=== PATIENT | female | born 1975 | race Caucasian/White ===

== ENCOUNTER → 2016-04-14 | Outpatient (REF) | payer MEDICARE, MEDICAID ==
[2016-04-14 12:17] LABS: ALBUMIN 3.8 GM/DL (3.2-5.2); ALBUMIN/GLOBULIN RATIO 1.27 (1.00-1.93); ALKALINE PHOSPHATASE 69 U/L (45-117); ALT/SGPT 30 U/L (12-78); ANION GAP 9 MEQ/L (8-16); AST/SGOT 19 U/L (15-37); BILIRUBIN,TOTAL 0.5 MG/DL (0.2-1.0); BLOOD UREA NITROGEN 12 MG/DL (7-18); CALCIUM LEVEL 9.1 MG/DL (8.5-10.1); CARBON DIOXIDE LEVEL 29 MEQ/L (21-32); CHLORIDE LEVEL 103 MEQ/L (98-107); CHOLESTEROL LEVEL 162 MG/DL (<200); CREATININE FOR GFR 0.85 MG/DL (0.55-1.02); GLOMERULAR FILTRATION RATE > 60.0 (>58); GLUCOSE, FASTING 340 MG/DL (70-105); POTASSIUM SERUM 4.2 MEQ/L (3.5-5.1); SODIUM LEVEL 141 MEQ/L (136-145); TOTAL PROTEIN 6.8 GM/DL (6.4-8.2); TRIGLYCERIDES LEVEL 317 MG/DL (<150)
== END ==
LOC: M SFHCCLAY 09:18
PROVIDERS: ATTEND Nurse Practitioner
DX: E11.8 Type 2 diabetes mellitus with unspecified complications (principal)

== ENCOUNTER → 2016-06-11 | Outpatient (REF) | payer MEDICARE, MEDICAID ==
[2016-06-11 11:42] LABS: ALBUMIN 3.4 GM/DL (3.2-5.2); ALBUMIN/GLOBULIN RATIO 1.17 (1.00-1.93); ALKALINE PHOSPHATASE 59 U/L (45-117); ALT/SGPT 22 U/L (12-78); ANION GAP 10 MEQ/L (8-16); AST/SGOT 12 U/L (15-37); BILIRUBIN,TOTAL 0.4 MG/DL (0.2-1.0); BLOOD UREA NITROGEN 12 MG/DL (7-18); CALCIUM LEVEL 8.9 MG/DL (8.5-10.1); CARBON DIOXIDE LEVEL 28 MEQ/L (21-32); CHLORIDE LEVEL 107 MEQ/L (98-107); CHOLESTEROL LEVEL 136 MG/DL (<200); CREATININE FOR GFR 0.84 MG/DL (0.55-1.02); GLOMERULAR FILTRATION RATE > 60.0 (>58); GLUCOSE, FASTING 241 MG/DL (70-105); POTASSIUM SERUM 3.8 MEQ/L (3.5-5.1); SODIUM LEVEL 145 MEQ/L (136-145); TOTAL PROTEIN 6.3 GM/DL (6.4-8.2); TRIGLYCERIDES LEVEL 253 MG/DL (<150)
== END ==
LOC: M SFHCCLAY 06:58
PROVIDERS: ATTEND Nurse Practitioner
DX: E11.8 Type 2 diabetes mellitus with unspecified complications (principal)
CPT/HCPCS: 80053; 80061; 82948; 83036; G0463

== ENCOUNTER → 2016-09-10 | Outpatient (REF) | payer MEDICARE, MEDICAID ==
[2016-09-10 12:49] LABS: ALBUMIN 3.6 GM/DL (3.2-5.2); ALBUMIN/GLOBULIN RATIO 1.24 (1.00-1.93); ALKALINE PHOSPHATASE 62 U/L (45-117); ALT/SGPT 25 U/L (12-78); ANION GAP 8 MEQ/L (8-16); AST/SGOT 9 U/L (15-37); BILIRUBIN,TOTAL 0.4 MG/DL (0.2-1.0); BLOOD UREA NITROGEN 13 MG/DL (7-18); CALCIUM LEVEL 8.9 MG/DL (8.5-10.1); CARBON DIOXIDE LEVEL 27 MEQ/L (21-32); CHLORIDE LEVEL 108 MEQ/L (98-107); CHOLESTEROL LEVEL 143 MG/DL (<200); CREATININE FOR GFR 0.83 MG/DL (0.55-1.02); GLOMERULAR FILTRATION RATE > 60.0 (>58); GLUCOSE, FASTING 163 MG/DL (70-105); MAGNESIUM LEVEL 1.8 MG/DL (1.8-2.4); SODIUM LEVEL 143 MEQ/L (136-145); TOTAL PROTEIN 6.5 GM/DL (6.4-8.2); TRIGLYCERIDES LEVEL 153 MG/DL (<150)
== END ==
LOC: M SFHCCLAY 08:13
PROVIDERS: ATTEND Nurse Practitioner
DX: E11.8 Type 2 diabetes mellitus with unspecified complications (principal); L29.9 Pruritus, unspecified

== ENCOUNTER → 2016-12-11 | Outpatient (REF) | payer MEDICARE, MEDICAID ==
[2016-12-11 12:26] LABS: ANION GAP 10 MEQ/L (8-16); BLOOD UREA NITROGEN 9 MG/DL (7-18); CALCIUM LEVEL 9.4 MG/DL (8.5-10.1); CARBON DIOXIDE LEVEL 27 MEQ/L (21-32); CHLORIDE LEVEL 108 MEQ/L (98-107); CREATININE FOR GFR 0.83 MG/DL (0.55-1.02); GLOMERULAR FILTRATION RATE > 60.0 (>58); GLUCOSE, FASTING 132 MG/DL (70-105); POTASSIUM SERUM 3.9 MEQ/L (3.5-5.1); SODIUM LEVEL 145 MEQ/L (136-145)
[2016-12-11 12:27] LABS: ALBUMIN 3.7 GM/DL (3.2-5.2); ALBUMIN/GLOBULIN RATIO 1.19 (1.00-1.93); ALKALINE PHOSPHATASE 52 U/L (45-117); ALT/SGPT 31 U/L (12-78); AST/SGOT 9 U/L (15-37); BILIRUBIN,TOTAL 0.4 MG/DL (0.2-1.0); CHOLESTEROL LEVEL 134 MG/DL (<200); TOTAL PROTEIN 6.8 GM/DL (6.4-8.2); TRIGLYCERIDES LEVEL 181 MG/DL (<150)
== END ==
LOC: M SFHCCLAY 08:25
PROVIDERS: ATTEND Nurse Practitioner
DX: E11.8 Type 2 diabetes mellitus with unspecified complications (principal); E55.9 Vitamin D deficiency, unspecified

== ENCOUNTER → 2017-03-03 | Outpatient (REF) | payer MEDICARE, MEDICAID ==
[2017-03-03 12:59] LABS: ALBUMIN 3.5 GM/DL (3.2-5.2); ALBUMIN/GLOBULIN RATIO 1.13 (1.00-1.93); ALKALINE PHOSPHATASE 60 U/L (45-117); ALT/SGPT 25 U/L (12-78); ANION GAP 5 MEQ/L (8-16); AST/SGOT 9 U/L (7-37); BILIRUBIN,TOTAL 0.4 MG/DL (0.2-1.0); BLOOD UREA NITROGEN 10 MG/DL (7-18); CARBON DIOXIDE LEVEL 32 MEQ/L (21-32); CHLORIDE LEVEL 105 MEQ/L (98-107); CHOLESTEROL LEVEL 153 MG/DL (<200); CREATININE FOR GFR 0.84 MG/DL (0.55-1.02); GLOMERULAR FILTRATION RATE > 60.0 (>58); GLUCOSE, FASTING 218 MG/DL (70-105); POTASSIUM SERUM 4.2 MEQ/L (3.5-5.1); SODIUM LEVEL 142 MEQ/L (136-145); TOTAL PROTEIN 6.6 GM/DL (6.4-8.2); TRIGLYCERIDES LEVEL 173 MG/DL (<150)
== END ==
LOC: M SFHCLERA 07:46 → M LABDRAWC 08:08
PROVIDERS: ATTEND Family Medicine
DX: E11.8 Type 2 diabetes mellitus with unspecified complications (principal)

== ENCOUNTER → 2017-05-19 | Outpatient (REF) | payer MEDICARE, MEDICAID ==
[2017-05-20 12:43] LABS: ESTIMATED AVERAGE GLUCOSE 232 MG/DL (60-110); HEMOGLOBIN A1c 9.7 %
== END ==
LOC: M SFHCCLAY 14:14
DX: E11.8 Type 2 diabetes mellitus with unspecified complications (principal)
CPT/HCPCS: 83036

== ENCOUNTER → 2017-09-03 | Outpatient (REF) | payer MEDICARE, MEDICAID ==
[2017-09-03 17:11] LABS: ANION GAP 6 MEQ/L (8-16); BLOOD UREA NITROGEN 15 MG/DL (7-18); CARBON DIOXIDE LEVEL 27 MEQ/L (21-32); CHLORIDE LEVEL 108 MEQ/L (98-107); CREATININE FOR GFR 1.03 MG/DL (0.55-1.30); GLOMERULAR FILTRATION RATE > 60.0 (>58); GLUCOSE, FASTING 211 MG/DL (70-100); POTASSIUM SERUM 4.1 MEQ/L (3.5-5.1); SODIUM LEVEL 141 MEQ/L (136-145)
[2017-09-03 17:39] LABS: ESTIMATED AVERAGE GLUCOSE 206 MG/DL (60-110); HEMOGLOBIN A1c 8.8 %
== END ==
LOC: M SFHCCLAY 11:00
DX: E11.9 Type 2 diabetes mellitus without complications (principal)
CPT/HCPCS: 83036

== ENCOUNTER → 2017-12-21 | Outpatient (REF) | payer MEDICARE, MEDICAID ==
[2017-12-21 11:56] LABS: BASO # 0.1 10^3/uL (0.0-0.2); BASO % 0.8 % (0.0-1.0); EOS # 0.7 10^3/uL (0.0-0.50); EOS % 7.2 % (0.0-3.0); HEMATOCRIT 43.3 % (36.0-47.0); HEMOGLOBIN 14.2 g/dl (12.0-15.5); IMMATURE GRANULOCYTE % 0.2 % (0-3.0); LYMPH # 2.9 10^3/uL (1.5-4.5); MEAN CORPUSCULAR HEMOGLOBIN 28.4 pg (27.0-33.0); MEAN CORPUSCULAR HGB CONC 32.8 g/dl (32.0-36.5); MEAN CORPUSCULAR VOLUME 86.6 fl (80.0-96.0); MONO # 0.6 10^3/uL (0.0-0.8); MONO % 6.1 % (0.0-5.0); NEUTROPHILS # 5.4 10^3/uL (1.8-7.7); NEUTROPHILS % 55.7 % (36.0-66.0); PLATELET COUNT, AUTOMATED 246 10^3/uL (150-450); RED CELL DISTRIBUTION WIDTH 13.2 % (11.5-14.5); WHITE BLOOD COUNT 9.6 10^3/uL (4.0-10.0)
[2017-12-21 12:32] LABS: ALKALINE PHOSPHATASE 69 U/L (45-117); ALT/SGPT 84 U/L (12-78); ANION GAP 7 MEQ/L (8-16); AST/SGOT 41 U/L (7-37); BILIRUBIN,TOTAL 0.5 MG/DL (0.2-1.0); BLOOD UREA NITROGEN 6 MG/DL (7-18); CALCIUM LEVEL 9.7 MG/DL (8.5-10.1); CARBON DIOXIDE LEVEL 28 MEQ/L (21-32); CHLORIDE LEVEL 109 MEQ/L (98-107); CREATININE FOR GFR 0.77 MG/DL (0.55-1.30); FERRITIN 553 NG/ML (8-252); GLOMERULAR FILTRATION RATE > 60.0 (>58); GLUCOSE, FASTING 202 MG/DL (70-100); IRON (FE) 76 UG/DL (50-170); MAGNESIUM LEVEL 1.9 MG/DL (1.8-2.4); PHOSPHORUS LEVEL 3.3 MG/DL (2.5-4.9); POTASSIUM SERUM 3.9 MEQ/L (3.5-5.1); SODIUM LEVEL 144 MEQ/L (136-145); TOTAL 25(OH) VITAMIN D 35.1 NG/ML (30.0-100.0); TOTAL IRON BINDING CAPACITY 226 UG/DL (250-450); TOTAL PROTEIN 6.9 GM/DL (6.4-8.2)
[2017-12-21 12:41] LABS: HEMATOCRIT 42.9 % (36.0-47.0)
[2017-12-21 13:03] LABS: ESTIMATED AVERAGE GLUCOSE 169 MG/DL (60-110); HEMOGLOBIN A1c 7.5 %
[2017-12-21 16:16] LABS: ALBUMIN/GLOBULIN RATIO 1.38 (1.00-1.93); PERCENT SATURATION 33.6 % (13.2-45.0)
[2017-12-21 16:20] LABS: RBC FOLATE 685.3 NG/ML (280-791)
[2017-12-24 08:06] LABS: VITAMIN B1 LEVEL WHOLE BLOOD 149.4 nmol/L (66.5-200.0)
== END ==
LOC: M LABDRAWC 11:16
DX: K91.2 Postsurgical malabsorption, not elsewhere classified (principal); E55.9 Vitamin D deficiency, unspecified; Z98.84 Bariatric surgery status
CPT/HCPCS: 83550

== ENCOUNTER → 2018-02-16 | Outpatient (REF) | payer MEDICARE, MEDICAID ==
[2018-02-16 11:41] LABS: HEMATOCRIT 44.6 % (36.0-47.0); HEMOGLOBIN 14.3 g/dl (12.0-15.5); MEAN CORPUSCULAR HGB CONC 32.1 g/dl (32.0-36.5); MEAN CORPUSCULAR VOLUME 87.3 fl (80.0-96.0); PLATELET COUNT, AUTOMATED 249 10^3/uL (150-450); RED BLOOD COUNT 5.11 10^6/uL (4.00-5.40)
[2018-02-16 11:47] LABS: ALBUMIN 3.7 GM/DL (3.2-5.2); ALBUMIN/GLOBULIN RATIO 1.28 (1.00-1.93); ALKALINE PHOSPHATASE 66 U/L (45-117); ALT/SGPT 26 U/L (12-78); ANION GAP 7 MEQ/L (8-16); AST/SGOT 11 U/L (7-37); BILIRUBIN,TOTAL 0.5 MG/DL (0.2-1.0); BLOOD UREA NITROGEN 8 MG/DL (7-18); CALCIUM LEVEL 9.3 MG/DL (8.5-10.1); CARBON DIOXIDE LEVEL 29 MEQ/L (21-32); CHLORIDE LEVEL 106 MEQ/L (98-107); CHOLESTEROL LEVEL 202 MG/DL (<200); CHOLESTEROL RISK RATIO 6.312 (<5); CREATININE FOR GFR 0.69 MG/DL (0.55-1.30); GLOMERULAR FILTRATION RATE > 60.0 (>58); GLUCOSE, FASTING 155 MG/DL (70-100); HDL CHOLESTEROL 32 MG/DL (>40); LDL CHOLESTEROL 121 MG/DL (<100); NON-HDL-C 170 MG/DL; SODIUM LEVEL 142 MEQ/L (136-145); TOTAL PROTEIN 6.6 GM/DL (6.4-8.2); TRIGLYCERIDES LEVEL 245 MG/DL (<150)
[2018-02-16 11:54] LABS: ESTIMATED AVERAGE GLUCOSE 169 MG/DL (60-110); HEMOGLOBIN A1c 7.5 %; PTH INTACT 45.4 PG/ML (18.5-88.0)
== END ==
LOC: M SFHCCLAY 07:30
DX: Z98.84 Bariatric surgery status (principal); E11.8 Type 2 diabetes mellitus with unspecified complications
CPT/HCPCS: 80053

== ENCOUNTER → 2018-05-23 | Outpatient (REF) | payer MEDICARE, MEDICAID ==
[2018-05-23 12:13] LABS: BASO # 0.1 10^3/uL (0.0-0.2); BASO % 0.6 % (0.0-1.0); EOS # 0.3 10^3/uL (0.0-0.50); EOS % 2.4 % (0.0-3.0); HEMATOCRIT 45.3 % (36.0-47.0); HEMOGLOBIN 14.7 g/dl (12.0-15.5); LYMPH # 3.9 10^3/uL (1.5-4.5); LYMPH % 31.8 % (24.0-44.0); MEAN CORPUSCULAR HEMOGLOBIN 28.8 pg (27.0-33.0); MEAN CORPUSCULAR HGB CONC 32.5 g/dl (32.0-36.5); MEAN CORPUSCULAR VOLUME 88.8 fl (80.0-96.0); MONO # 0.7 10^3/uL (0.0-0.8); MONO % 5.6 % (0.0-5.0); NEUTROPHILS # 7.3 10^3/uL (1.8-7.7); NEUTROPHILS % 59.3 % (36.0-66.0); PLATELET COUNT, AUTOMATED 265 10^3/uL (150-450); WHITE BLOOD COUNT 12.3 10^3/uL (4.0-10.0)
[2018-05-23 12:21] LABS: HEMATOCRIT 45.3 % (36.0-47.0)
[2018-05-23 12:46] LABS: ALBUMIN 3.7 GM/DL (3.2-5.2); ALT/SGPT 23 U/L (12-78); BILIRUBIN,TOTAL 0.5 MG/DL (0.2-1.0); BLOOD UREA NITROGEN 7 MG/DL (7-18); CALCIUM LEVEL 8.8 MG/DL (8.5-10.1); CARBON DIOXIDE LEVEL 32 MEQ/L (21-32); CHLORIDE LEVEL 104 MEQ/L (98-107); CREATININE FOR GFR 0.69 MG/DL (0.55-1.30); FERRITIN 320 NG/ML (8-252); GLOMERULAR FILTRATION RATE > 60.0 (>58); GLUCOSE, FASTING 165 MG/DL (70-100); IRON (FE) 83 UG/DL (50-170); MAGNESIUM LEVEL 1.8 MG/DL (1.8-2.4); PERCENT SATURATION 31.6 % (13.2-45.0); PHOSPHORUS LEVEL 4.2 MG/DL (2.5-4.9); POTASSIUM SERUM 4.4 MEQ/L (3.5-5.1); SODIUM LEVEL 141 MEQ/L (136-145); TOTAL IRON BINDING CAPACITY 263 UG/DL (250-450); TOTAL PROTEIN 6.7 GM/DL (6.4-8.2)
[2018-05-23 12:49] LABS: TOTAL 25(OH) VITAMIN D 25.2 NG/ML (30.0-100.0)
[2018-05-24 11:02] LABS: VITAMIN B12 LEVEL 753 PG/ML (232-1245)
== END ==
LOC: M LABDRAWC 11:25
PROVIDERS: ATTEND Surgery
DX: K91.2 Postsurgical malabsorption, not elsewhere classified (principal); Z98.84 Bariatric surgery status; E55.9 Vitamin D deficiency, unspecified; E11.8 Type 2 diabetes mellitus with unspecified complications

== ENCOUNTER → 2018-05-23 | Outpatient (REF) | payer MEDICARE, MEDICAID | LOC: M SFHCCLAY 08:53 | PROVIDERS: ATTEND Family Medicine | DX: E11.8 Type 2 diabetes mellitus with unspecified complications (principal) ==

== ENCOUNTER → 2018-09-07 | Outpatient (CLI) | payer MEDICARE, MEDICAID ==
--- NOTE | 2018-09-07 11:09 | REP ---
Bilateral rib series: Eight views including PA chest. History: Rib pain on the right side after a strain injury. Findings: The PA chest radiograph is normal. There is no evidence of infiltrate, pneumothorax, or hydrothorax. Mediastinum is not widened. Heart size is normal. Multiple views of the right and left rib cage are presented. These show no evidence of rib fracture or bony destructive lesion. There is periarticular soft-tissue calcification noted about the right shoulder consistent with calcific tendonitis or bursitis. There are clips in the right upper quadrant of the abdomen. Impression: Negative bilateral rib radiographs.
--- NOTE | 2018-09-07 11:11 | REP ---
Thoracic spine series: Three views. History: Mid back pain. Findings: Three views of the thoracic spine demonstrate preserved vertebral body heights and normal alignment. There is moderate discogenic spurring anteriorly throughout the mid and lower thoracic levels. Pedicles and posterior elements are intact. No paravertebral soft-tissue mass or hematoma is seen. No bony destructive lesion is appreciated. Impression: Degenerative disc changes. No acute bony abnormality.
--- NOTE | 2018-09-07 11:44 | REP ---
LUMBAR SPINE SERIES: Five views. HISTORY: Acute midline low back pain without sciatica. COMPARISON RADIOGRAPHS: December 20, 2013. FINDINGS: There are clips in the right upper quadrant and sutures in the left upper quadrant. Psoas margins are intact. Bowel gas pattern is normal. Lumbar vertebral body heights are preserved. Alignment is normal. There are advanced degenerative disc changes at L5-S1 with reactive sclerosis, disc space narrowing, spur formation, and a vacuum phenomenon in the disc. Alignment at L5-S1 is unchanged. There is degenerative disc disease at L4-5 and L3-4 as well. Degenerative disc findings at these levels are unchanged from December 20, 2013. There is osteoarthritic facet hypertrophy bilaterally L4-5 and L5-S1 mild in degree. Sacrum and SI joints are intact. IMPRESSION: Degenerative spondylosis changes with moderate to advanced degenerative disc disease L5-S1. Findings unchanged radiographically from December 20, 2013. Electronically Signed by Jamar Gordon MD 09/07/2018 12:37 P
== END ==
LOC: M CLY 09:42
PROVIDERS: ATTEND Family Medicine
DX: M51.34 Other intervertebral disc degeneration, thoracic region (principal); M51.37 Other intervertebral disc degeneration, lumbosacral region; E11.8 Type 2 diabetes mellitus with unspecified complications; R07.81 Pleurodynia; M54.5 Low back pain
CPT/HCPCS: 71111; 72072; 72110; 80053; 83036; G0463

== ENCOUNTER → 2018-09-07 | Outpatient (REF) | payer MEDICARE, MEDICAID ==
[2018-09-07 17:34] LABS: ALBUMIN 3.8 GM/DL (3.2-5.2); ALT/SGPT 15 U/L (12-78); BILIRUBIN,TOTAL 0.3 MG/DL (0.2-1.0); BLOOD UREA NITROGEN 8 MG/DL (7-18); CALCIUM LEVEL 9.1 MG/DL (8.5-10.1); CARBON DIOXIDE LEVEL 31 MEQ/L (21-32); CHLORIDE LEVEL 109 MEQ/L (98-107); CREATININE FOR GFR 0.71 MG/DL (0.55-1.30); GLOMERULAR FILTRATION RATE > 60.0 (>58); GLUCOSE, FASTING 111 MG/DL (70-100); POTASSIUM SERUM 4.4 MEQ/L (3.5-5.1); SODIUM LEVEL 143 MEQ/L (136-145); TOTAL PROTEIN 6.7 GM/DL (6.4-8.2)
[2018-09-07 17:39] LABS: HEMOGLOBIN A1c 6.7 %
== END ==
LOC: M SFHCCLAY 09:37
PROVIDERS: ATTEND Family Medicine
DX: E11.8 Type 2 diabetes mellitus with unspecified complications (principal)

== ENCOUNTER → 2018-11-16 | Outpatient (REF) | payer MEDICARE, MEDICAID ==
[2018-11-16 18:21] LABS: BASO # 0.1 10^3/uL (0.0-0.2); BASO % 0.8 % (0.0-1.0); EOS # 0.3 10^3/uL (0.0-0.50); EOS % 2.8 % (0.0-3.0); HEMATOCRIT 47.4 % (36.0-47.0); HEMOGLOBIN 15.4 g/dl (12.0-15.5); LYMPH # 4.2 10^3/uL (1.5-4.5); LYMPH % 36.6 % (24.0-44.0); MEAN CORPUSCULAR HEMOGLOBIN 29.4 pg (27.0-33.0); MEAN CORPUSCULAR HGB CONC 32.5 g/dl (32.0-36.5); MEAN CORPUSCULAR VOLUME 90.5 fl (80.0-96.0); MONO # 0.7 10^3/uL (0.0-0.8); MONO % 6.4 % (0.0-5.0); NEUTROPHILS # 6.1 10^3/uL (1.8-7.7); NEUTROPHILS % 53.1 % (36.0-66.0); PLATELET COUNT, AUTOMATED 236 10^3/uL (150-450); RED BLOOD COUNT 5.24 10^6/uL (4.00-5.40); WHITE BLOOD COUNT 11.6 10^3/uL (4.0-10.0)
[2018-11-16 18:22] LABS: ALBUMIN 3.8 GM/DL (3.2-5.2); ALT/SGPT 16 U/L (12-78); BILIRUBIN,TOTAL 0.4 MG/DL (0.2-1.0); BLOOD UREA NITROGEN 9 MG/DL (7-18); CALCIUM LEVEL 8.9 MG/DL (8.5-10.1); CARBON DIOXIDE LEVEL 29 MEQ/L (21-32); CHLORIDE LEVEL 110 MEQ/L (98-107); CREATININE FOR GFR 0.72 MG/DL (0.55-1.30); FERRITIN 269 NG/ML (8-252); GLOMERULAR FILTRATION RATE > 60.0 (>58); GLUCOSE, FASTING 122 MG/DL (70-100); IRON (FE) 84 UG/DL (50-170); PERCENT SATURATION 32.2 % (13.2-45.0); SODIUM LEVEL 143 MEQ/L (136-145); TOTAL IRON BINDING CAPACITY 261 UG/DL (250-450); TOTAL PROTEIN 6.8 GM/DL (6.4-8.2)
[2018-11-16 18:34] LABS: HEMATOCRIT 47.4 % (36.0-47.0)
[2018-11-17 11:08] LABS: TOTAL 25(OH) VITAMIN D 20.7 NG/ML (30.0-100.0); VITAMIN B12 LEVEL 1034 PG/ML (247-911)
== END ==
LOC: M LABDRAWC 17:01
PROVIDERS: ATTEND Physician Assistant Surgical
DX: K91.2 Postsurgical malabsorption, not elsewhere classified (principal); Z98.84 Bariatric surgery status; E55.9 Vitamin D deficiency, unspecified

== ENCOUNTER → 2019-01-10 | Outpatient (REF) | payer MEDICARE, MEDICAID ==
[2019-01-10 17:38] LABS: ALBUMIN 3.6 GM/DL (3.2-5.2); ALT/SGPT 20 U/L (12-78); BILIRUBIN,TOTAL 0.6 MG/DL (0.2-1.0); BLOOD UREA NITROGEN 9 MG/DL (7-18); CARBON DIOXIDE LEVEL 30 MEQ/L (21-32); CHLORIDE LEVEL 108 MEQ/L (98-107); CHOLESTEROL LEVEL 130 MG/DL (<200); CHOLESTEROL RISK RATIO 3.333 (<5); CREATININE FOR GFR 0.82 MG/DL (0.55-1.30); GLOMERULAR FILTRATION RATE > 60.0 (>58); GLUCOSE, FASTING 99 MG/DL (70-100); HDL CHOLESTEROL 39 MG/DL (>40); LDL CHOLESTEROL 72 MG/DL (<100); NON-HDL-C 91 MG/DL; POTASSIUM SERUM 3.8 MEQ/L (3.5-5.1); SODIUM LEVEL 143 MEQ/L (136-145); TOTAL PROTEIN 6.8 GM/DL (6.4-8.2); TRIGLYCERIDES LEVEL 97 MG/DL (<150)
[2019-01-10 17:48] LABS: HEMOGLOBIN A1c 6.5 %
[2019-01-10 18:26] LABS: MAU/CREAT RATIO 6.6 MCG/MG (0.0-30.0)
== END ==
LOC: M SFHCCLAY 09:32
PROVIDERS: ATTEND Family Medicine
DX: E78.5 Hyperlipidemia, unspecified (principal); E11.8 Type 2 diabetes mellitus with unspecified complications

== ENCOUNTER → 2019-07-11 | Outpatient (REF) | payer MEDICARE, MEDICAID ==
[2019-07-11 16:19] LABS: HEMATOCRIT 48.6 % (36.0-47.0); MEAN CORPUSCULAR HEMOGLOBIN 29.3 pg (27.0-33.0); MEAN CORPUSCULAR HGB CONC 32.9 g/dl (32.0-36.5); PLATELET COUNT, AUTOMATED 258 10^3/uL (150-450); RED BLOOD COUNT 5.46 10^6/uL (4.00-5.40); WHITE BLOOD COUNT 13.8 10^3/uL (4.0-10.0)
[2019-07-11 16:24] LABS: C REACTIVE PROTEIN QUANTITATIV 1.14 MG/DL (0.00-0.30); RHEUMATOID FACTOR QUANT 30.6 IU/ML (<15.0); URIC ACID 4.2 MG/DL (2.6-6.0)
[2019-07-11 19:32] LABS: ATYPICAL LYMPH 4 % (0-5); BASOPHILS 3 % (0-1); EOSINOPHILS 1 % (0-3); LYMPHOCYTES 37 % (16-44); MONOCYTES 4 % (0-5); NEUTROPHILS 51 % (28-66)
[2019-07-11 19:34] LABS: PLATELET ESTIMATE NORMAL (NORMAL)
== END ==
LOC: M SFHCCLAY 12:07
PROVIDERS: ATTEND Family Medicine
DX: M13.10 Monoarthritis, not elsewhere classified, unspecified site (principal); Z79.899 Other long term (current) drug therapy

== ENCOUNTER → 2019-07-11 | Outpatient (CLI) | payer MEDICARE, MEDICAID ==
--- NOTE | 2019-07-11 13:50 | REP ---
REASON FOR EXAM: Acute pain with acute decreased range of motion. There is mild AC joint DJD. A single AP view of the shoulder was obtained markedly decreasing the sensitivity of the exam and the overall detection of acute disease. The glenohumeral relationship appears to be within normal limits on this markedly limited exam. There is no gross acute fracture seen on this limited exam. There is a subcentimeter sized calcification in the soft tissues lateral to the humeral head possibly reflecting chronic calcific subdeltoid bursitis and/or chronic calcific supraspinatus tendinitis/tendinosis. IMPRESSION: Markedly limited exam with findings as described above. A three-view shoulder series is recommended with consideration made for followup with a CT and/or MRI. Electronically Signed by Ayaan Dueñas DO 07/11/2019 03:05 P
== END ==
LOC: M CLY 12:25
PROVIDERS: ATTEND Family Medicine
DX: M13.10 Monoarthritis, not elsewhere classified, unspecified site (principal); Z79.899 Other long term (current) drug therapy
CPT/HCPCS: 73020; 84550; 85025; 85652; 86038; 86140; 86200; 86431; G0463

== ENCOUNTER → 2019-11-07 | Outpatient (REF) | payer MEDICARE, MEDICAID ==
[2019-12-01 12:00] LABS: HEMATOCRIT 46.1 % (36.0-47.0); HEMOGLOBIN 14.6 g/dl (12.0-15.5); MEAN CORPUSCULAR HGB CONC 31.7 g/dl (32.0-36.5); MEAN CORPUSCULAR VOLUME 91.5 fl (80.0-96.0); PLATELET COUNT, AUTOMATED 226 10^3/uL (150-450); RED BLOOD COUNT 5.04 10^6/uL (4.00-5.40); WHITE BLOOD COUNT 13.2 10^3/uL (4.0-10.0)
[2019-12-12 14:14] LABS: ALBUMIN 3.9 GM/DL (3.2-5.2); ALT/SGPT 30 U/L (12-78); BILIRUBIN,TOTAL 0.2 MG/DL (0.2-1.0); BLOOD UREA NITROGEN 7 MG/DL (7-18); CALCIUM LEVEL 8.8 MG/DL (8.5-10.1); CARBON DIOXIDE LEVEL 29 MEQ/L (21-32); CHLORIDE LEVEL 110 MEQ/L (98-107); CREATININE FOR GFR 0.72 MG/DL (0.55-1.30); GLOMERULAR FILTRATION RATE > 60.0 (>58); GLUCOSE, FASTING 97 MG/DL (70-100); POTASSIUM SERUM 4.3 MEQ/L (3.5-5.1); PTH INTACT 61.1 PG/ML (18.5-88.0); SODIUM LEVEL 142 MEQ/L (136-145); TOTAL 25(OH) VITAMIN D 43.7 NG/ML (30.0-100.0); TOTAL PROTEIN 6.8 GM/DL (6.4-8.2)
[2019-12-12 14:15] LABS: HEMOGLOBIN A1c 6.2 %
== END ==
LOC: M SFHCCLAY 16:49
PROVIDERS: ATTEND Family Medicine
DX: E11.9 Type 2 diabetes mellitus without complications (principal); K95.89 Other complications of other bariatric procedure; Z98.84 Bariatric surgery status; Z79.899 Other long term (current) drug therapy
CPT/HCPCS: 36415; 80053; 82306; 83036; 83970; 85027; G0463

== ENCOUNTER → 2020-03-12 | Outpatient (REF) | payer MEDICARE, MEDICAID ==
[2020-03-12 17:40] LABS: BLOOD UREA NITROGEN 13 MG/DL (7-18); CALCIUM LEVEL 8.9 MG/DL (8.5-10.1); CARBON DIOXIDE LEVEL 30 MEQ/L (21-32); CHLORIDE LEVEL 109 MEQ/L (98-107); CREATININE FOR GFR 0.72 MG/DL (0.55-1.30); GLOMERULAR FILTRATION RATE > 60.0 (>58); GLUCOSE, FASTING 90 MG/DL (70-100); POTASSIUM SERUM 4.1 MEQ/L (3.5-5.1); SODIUM LEVEL 141 MEQ/L (136-145)
[2020-03-12 17:42] LABS: HEMOGLOBIN A1c 6.2 %
== END ==
LOC: M SFHCCLAY 13:44
PROVIDERS: ATTEND Family Medicine
DX: E11.8 Type 2 diabetes mellitus with unspecified complications (principal)
CPT/HCPCS: 80048; 83036; G0463

== ENCOUNTER → 2020-04-29 | Outpatient (REF) | payer MEDICARE, MEDICAID ==
[~2020-04-29] MED LIST: ATOR40TA75 PO; B-122500 PO; CLIN150C15 PO; ESTR2TAB2 PO; FERR325T3 PO; FLUO40CA PO; MEDR5TAB3 PO; OMEP-221 PO; SITA50TAB PO; TRAM50TA2 PO; VITA50005 PO
[2020-04-29 11:40] LABS: HEMATOCRIT 47.8 % (36.0-47.0); MEAN CORPUSCULAR HEMOGLOBIN 29.1 pg (27.0-33.0); MEAN CORPUSCULAR HGB CONC 31.4 g/dl (32.0-36.5); MEAN CORPUSCULAR VOLUME 92.6 fl (80.0-96.0); PLATELET COUNT, AUTOMATED 212 10^3/uL (150-450); RED BLOOD COUNT 5.16 10^6/uL (4.00-5.40); WHITE BLOOD COUNT 12.8 10^3/uL (4.0-10.0)
[2020-04-29 12:34] LABS: BLOOD UREA NITROGEN 12 MG/DL (7-18); CALCIUM LEVEL 9.3 MG/DL (8.5-10.1); CARBON DIOXIDE LEVEL 31 MEQ/L (21-32); CHLORIDE LEVEL 107 MEQ/L (98-107); CREATININE FOR GFR 0.74 MG/DL (0.55-1.30); GLOMERULAR FILTRATION RATE > 60.0 (>58); GLUCOSE, FASTING 127 MG/DL (70-100); SODIUM LEVEL 142 MEQ/L (136-145)
[2020-04-29 13:59] LABS: HEMOGLOBIN A1c 6.5 %
== END ==
LOC: M SFHCCLAY 08:39
PROVIDERS: ATTEND Family Medicine
DX: E11.8 Type 2 diabetes mellitus with unspecified complications (principal)

== ENCOUNTER → 2020-05-04 | Outpatient (CLI) | payer MEDICARE, MEDICAID | LOC: M LABSMTC 09:54 | PROVIDERS: ATTEND Anesthesiology | DX: Z01.812 Encounter for preprocedural laboratory examination (principal); Z20.822 Contact with and (suspected) exposure to COVID-19 ==

== ENCOUNTER 2020-05-09 06:00 | Inpatient (IN) | payer MEDICARE, MEDICAID ==
[~2020-05-09] VITALS: Ht 170.2 cm; Wt 110.3 kg
[~2020-05-09 06:00] MED LIST changes: -CLIN150C15 PO; -FERR325T3 PO; +HEPARIN SOD (PORCINE) 5000UNITS/ML 1ML VIAL/SYRINGE SQ ONE; +LR 1,000 ML IV ONE; -TRAM50TA2 PO
[2020-05-09] MEDS ORDERED: BACITRACIN PWD 50,000 UNITS VIAL As Ordered ONE (07:12)
[2020-05-09] MEDS ORDERED: BUPIVACAINE LIPOSOME/PF 1.3% 20ML VIAL (13.3MG/ML)(EXPAREL)(C9290 PER1MG) As Ordered ONE (07:12)
[2020-05-09] MEDS ORDERED: CLINDAMYCIN 300 MG in IV 1 EA IV ONE (07:15)
[2020-05-09] MEDS ORDERED: propofoL 200 MG/20 ML VIAL As Ordered ONE (07:22)
[2020-05-09] MEDS ORDERED: LIDOCAINE 2% 100MG/5ML SDV (FOR ANES.) As Ordered ONE (07:22)
[2020-05-09] MEDS ORDERED: dexameTHASONE 4 MG/ML 1ML VIAL (J1100 PER 1MG) As Ordered ONE (07:22)
[2020-05-09] MEDS ORDERED: ROCURONIUM BROMIDE 50 MG/5 ML VIAL As Ordered ONE ×2 (07:22→09:05)
[2020-05-09] MEDS ORDERED: fentaNYL 250 MCG/5 ML INJECTION (J3010) As Ordered ONE (07:24)
[2020-05-09] MEDS ORDERED: MIDAZOLAM INJ 2MG/2ML VIAL (J2250 PER 1MG) As Ordered ONE (07:24)
[2020-05-09] MEDS ORDERED: LACRILUBE (AKWA TEARS) OPHTH OINT 3.5 GM As Ordered ONE (07:55)
[2020-05-09] MEDS ORDERED: PHENYLephrine 500MCG 5ML (100MCG/ML) SYRINGE As Ordered ONE (08:09)
[2020-05-09] MEDS ORDERED: SUGAMMADEX SODIUM 500 MG/5 ML VIAL (BRIDION) As Ordered ONE (08:50)
[2020-05-09] MEDS ORDERED: ACETAMINOPHEN 1000MG 100ML IV BTL (OFIRMEV) (J0131 PER 10MG) As Ordered ONE (08:50)
[2020-05-09] MEDS ORDERED: HYDROmorphone HCL 2 MG/ML 1ML VIAL (J1170) As Ordered ONE (08:50)
[2020-05-09] MEDS ORDERED: ePHEDrine SULFATE 25 MG/5 ML(5MG/ML) SYRINGE As Ordered ONE (08:50)
[2020-05-09] MEDS ORDERED: METOCLOPRAMIDE INJ 10MG/2ML VIAL (J2765 PER 1) As Ordered ONE (09:08)
[2020-05-09] MEDS ORDERED: oxyCODONE 5MG TAB PO PRN (11:45)
[2020-05-09] MEDS ORDERED: MEPERIDINE INJ 25 MG/ML VIAL (J2175) IV PRN (11:45)
[2020-05-09] MEDS ORDERED: ONDANSETRON 4MG/2ML VIAL IV PRN (11:45)
[2020-05-09] MEDS ORDERED: METOCLOPRAMIDE INJ 10MG/2ML VIAL (J2765 PER 1) IV PRN (11:45)
[2020-05-09] MEDS ORDERED: fentaNYL 100 MCG/2 ML INJECTION (J3010) IV PRN (11:45)
[2020-05-09] MEDS ORDERED: LR 1,000 ML IV SCH (11:45)
--- NOTE | 2020-05-09 11:53 | POST-OPPD ---
Postoperative Procedure Note Date Of Procedure: May 09, 2020 PREOPERATIVE DIAGNOSIS: Panniculitis POSTOPERATIVE DIAGNOSIS: same FINDINGS: Large pannus, mons ptosis. PROCEDURE: Extended panniculectomy. SURGEON: Dr Moy ANESTHESIA: General SPECIMENS: Pannus 4304 gm ESTIMATED BLOOD LOSS: 150 cc REPLACED: none DRAINS: 10 mm LILIA x 4. COMPLICATIONS: none POSTOPERATIVE CONDITION: stable SERA MOY DO May 09, 2020 11:53
[2020-05-09] MEDS ORDERED: GLUCAGON INJ 1MG VIAL SC PRN ×2 (12:00→12:30)
[2020-05-09] MEDS ORDERED: PERCOCET 5MG/325MG TAB PO PRN (12:00)
[2020-05-09] MEDS ORDERED: KETOROLAC TROMETHAMINE 10 MG TAB PO PRN (12:00)
[2020-05-09] MEDS ORDERED: DEXTROSE 50% 50 ML SYRINGE IV PRN ×2 (12:00→12:30)
[2020-05-09] MEDS ORDERED: GLUCOSE 4GM CHEW TABLET PO PRN ×2 (12:00→12:30)
[2020-05-09 13:00] VITALS: BP 120/74
[2020-05-09 13:30] VITALS: BP 111/85
[2020-05-09] MEDS: FLUoxetine 20 MG CAP PO SCH (13:31)
[2020-05-09] MEDS: SITagliptin 50 MG TAB (JANUVIA) PO SCH (13:31)
[2020-05-09] MEDS: ATORVASTATIN 20 MG TAB PO SCH (13:31)
[2020-05-09] MEDS: LR 1,000 ML IV SCH ×2 (13:32→21:54)
[2020-05-09] MEDS: HumaLOG INSULIN (NovoLOG) PER UNIT SC SCH ×2 (13:32→18:04)
--- NOTE | 2020-05-09 13:49 | ROOPDOC ---
[facility] Report Of Operation Report of Operation DATE OF PROCEDURE: 05/09/20 PREOPERATIVE DIAGNOSIS: Panniculitis POSTOPERATIVE DIAGNOSIS: Same FINDINGS: Large pannus, mons ptosis. PROCEDURE: Extended panniculectomy. SURGEON: Dr Moy ANESTHESIA: General SPECIMENS: Pannus 4304 gm ESTIMATED BLOOD LOSS: 150 cc REPLACED: None DRAINS: 10 mm Josue-Ghosh 4. COMPLICATIONS: None POSTOPERATIVE CONDITION: Stable. Procedure: This is a 44-year-old female status post significant weight loss. Patient has excessive pannus above and mostly below the umbilicus with large mons pubis ptosis. Patient is scheduled for extended panniculectomy. Risks benefits and alternatives discussed with the patient in details. Informed consent confirmed and preoperative holding area. Patient was marked in upright position. She was brought into the operating room, placed in supine position, preoperative antibiotics given, sequential stockings placed in the lower calves, and then general anesthesia is induced. 5000 units heparin given subcutaneously. Fully introduced in the bladder without any difficulties with yellow clear urine present. She was prepped and draped in the usual sterile fashion. Lower abdominal incision was designed 7 cm above the labial crease. Incision carried out with 10 blade. Careful sharp dissection with electrocautery and peek cautery was done until the fascia of rectus muscle is identified. Vessels were identified throughout and either cauterized or suture ligated for hemostasis control. Significant scarring was encountered at the lower mid abdominal area status post total abdominal hysterectomy surgery. Fascia completely intact. Infraumbilical flap was divided in the middle to aid the dissection. We continued our dissection until umbilicus was encountered. Rhomboid incision made around the umbilicus and dissection continued 5 cm above. Patient placed on placed in the reflex position and excess tissue was measured and scored. Then it was resected using electrocautery. Total weight of the pannus 4304 g. Careful hemostasis was assured. The wound is irrigated bacitracin irrigation, then extra row was given throughout the subcutaneous tissue and rectus fascia total 20 mL. Skin flaps were realigned and was started all closure with deep sutures of 0 Vicryl realigning the mons pubis and closing the lower abdominal incision. 3 mL Monocryl V lock suture used for subcutaneous closure followed by 3-0 Monocryl interrupted sutures as well. For 10 mm Josue-Ghosh drains were placed throughout lower abdominal incision. New opening was created for the umbilical stump using electrocautery. The umbilicus was brought into v iew and sutured in place with interrupted 3-Monocryl sutures and 5-0 plain gut sutures in the running fashion. Additional staplers were placed for appropriate protection of incision. Prinio dressing applied to lower abdominal incision, Xeroform to umbilicus, and bulky dressing throughout. Abdominal binder applied. Patient extubated in the operating room without any difficulties and transferred to recovery room in stable condition. SERA MOY DO May 09, 2020 13:49
[2020-05-09 14:30] VITALS: BP 126/83
[2020-05-09 15:30] VITALS: BP 120/80
[2020-05-09] MEDS: medroxyPROGESTERone 5MG TABLET PO SCH (16:20)
[2020-05-09 16:30] VITALS: BP 119/81
[2020-05-09 20:41] VITALS: BP 110/70
[2020-05-09] MEDS: ONDANSETRON 4MG/2ML VIAL IV PRN (22:06)
[2020-05-10] VITALS (14 sets, daily range): BP systolic 100–125; BP diastolic 58–73
[2020-05-10 06:55] LABS: BASO # 0.1 10^3/uL (0.0-0.2); BASO % 0.4 % (0.0-1.0); EOS # 0.1 10^3/uL (0.0-0.5); EOS % 0.5 % (0.0-3.0); HEMATOCRIT 28.7 % (36.0-47.0); HEMOGLOBIN 9.1 g/dl (12.0-15.5); LYMPH # 2.7 10^3/uL (1.5-5.0); LYMPH % 18.2 % (24.0-44.0); MEAN CORPUSCULAR HEMOGLOBIN 28.8 pg (27.0-33.0); MEAN CORPUSCULAR HGB CONC 31.7 g/dl (32.0-36.5); MEAN CORPUSCULAR VOLUME 90.8 fl (80.0-96.0); MONO # 1.9 10^3/uL (0.0-0.8); MONO % 12.7 % (0.0-5.0); NEUTROPHILS # 10.2 10^3/uL (1.5-8.5); NEUTROPHILS % 67.9 % (36.0-66.0); PLATELET COUNT, AUTOMATED 217 10^3/uL (150-450); RED BLOOD COUNT 3.16 10^6/uL (4.00-5.40); WHITE BLOOD COUNT 14.9 10^3/uL (4.0-10.0)
[2020-05-10] MEDS: SITagliptin 50 MG TAB (JANUVIA) PO SCH (08:10)
[2020-05-10] MEDS: medroxyPROGESTERone 5MG TABLET PO SCH (08:10)
[2020-05-10] MEDS: OMEPRAZOLE 20 MG CAP PO SCH (08:11)
[2020-05-10] MEDS: ATORVASTATIN 20 MG TAB PO SCH (08:11)
[2020-05-10] MEDS: FLUoxetine 20 MG CAP PO SCH (08:11)
[2020-05-10] MEDS: HumaLOG INSULIN (NovoLOG) PER UNIT SC SCH ×3 (08:11→17:30)
[2020-05-10] MEDS ORDERED: LR 1,000 ML IV ONE (08:45)
--- NOTE | 2020-05-10 09:29 | IPNPDOC ---
Subjective General Date Seen: May 10, 2020 Subject Chief Complaint/History The patient is a 44-year-old female admitted with a reason for visit of Panniculitis, Separation Of Muscle. Patient is status post extended panniculectomy postop day 1. Her pain is controlled however Percocet makes her feel nauseated. She also has episode of dizziness when upright and trying to stand up. Symptoms resolved when she is laying down and she feels comfortable in bed. Tolerating diet and urinating normally. Current Medications Current Medications Current Medications Medications (Trade) Dose Ordered Sig/Diane Route PRN Reason Start Time Stop Time Status Last Admin Dose Admin Acetaminophen (Tylenol Tab) 650 mg Q6H PRN PO MILD PAIN (PS 1-4) 05/09/20 12:00 Atorvastatin Calcium (Lipitor) 40 mg DAILY PO 05/09/20 09:00 05/10/20 08:11 Dextrose (Dextrose 50%) 25 ml ASDIRECTED PRN IV SEE LABEL COMMENTS 05/09/20 12:00 05/09/20 12:23 DC Dextrose (Dextrose 50%) 25 ml ASDIRECTED PRN IV SEE LABEL COMMENTS 05/09/20 12:30 Fentanyl Citrate (Sublimaze) 25 mcg Q5MP PRN IV PAIN LEVEL 5-10 05/09/20 11:45 05/09/20 12:45 DC Fluoxetine HCl (PROzac) 40 mg DAILY PO 05/09/20 09:00 05/10/20 08:11 Glucagon (Glucagon) 1 mg ASDIRECTED PRN SC SEE LABEL COMMENTS 05/09/20 12:00 UNV Glucagon (Glucagon) 1 mg ASDIRECTED PRN SC SEE LABEL COMMENTS 05/09/20 12:30 Glucose (Glucose) 16 GM ASDIRECTED PRN PO SEE LABEL COMMENTS 05/09/20 12:00 UNV Glucose (Glucose) 16 GM ASDIRECTED PRN PO SEE LABEL COMMENTS 05/09/20 12:30 Insulin Human Lispro (HumaLOG INSULIN) SEE PROTOCOL TABLE AC SC 05/09/20 12:00 05/10/20 08:11 Ketorolac Tromethamine (ToRADol) 10 mg Q6HP PRN PO MODERATE PAIN (PS 5-7) 05/09/20 12:00 05/14/20 11:59 05/09/20 17:23 Lactated Ringer's 1,000 ml @ 75 mls/hr [id number] IV 05/09/20 11:53 05/09/20 21:54 Lactated Ringer's 1,000 ml @ 100 mls/hr Q10H IV 05/09/20 11:45 05/09/20 12:45 DC Medroxyprogesterone Acetate (Provera) 5 mg DAILY PO 05/09/20 09:00 05/10/20 08:10 Meperidine HCl (Demerol) 12.5 mg Q5MP PRN IV SHIVERING 05/09/20 11:45 05/09/20 12:45 DC Metoclopramide HCl (REGLAN INJection) 10 mg Q6HP PRN IV NAUSEA OR VOMITING 05/09/20 11:45 05/09/20 12:45 DC Miscellaneous (Unresolved Clarification Entry) SEE LABEL COMMENTS DAILY XX 05/09/20 09:00 05/09/20 07:14 DC Miscellaneous (Unresolved Clarification Entry) SEE LABEL COMMENTS DAILY XX 05/09/20 09:00 05/10/20 08:34 DC Miscellaneous (Unresolved Clarification Entry) SEE LABEL COMMENTS DAILY XX 05/10/20 09:00 Omeprazole (PriLOSEC) 40 mg DAILY PO 05/10/20 09:00 05/10/20 08:11 Ondansetron HCl (ZOFRAN INJection) 4 mg Q4H PRN IV NAUSEA OR VOMITING 05/09/20 12:00 05/09/20 22:06 Ondansetron HCl (ZOFRAN INJection) 4 mg Q4HP PRN IV NAUSEA OR VOMITING 05/09/20 11:45 05/09/20 12:45 DC Oxycodone HCl (Roxicodone, Oxyir) 5 mg ASDIRECTED PRN PO PAIN LEVEL 1-4 05/09/20 11:45 05/09/20 12:45 DC Oxycodone/ Acetaminophen (Percocet 5mg/ 325mg Tablet) 2 tab Q4HP PRN PO PAIN LEVEL 8-10 05/09/20 12:00 05/10/20 08:34 DC 05/09/20 20:20 Sitagliptin Phosphate (Januvia) 50 mg DAILY PO 05/09/20 09:00 05/10/20 08:10 Tramadol HCl (Ultram) 50 mg Q4HP PRN PO MODERATE PAIN (PS 5-7) 05/10/20 08:45 UNV Tramadol HCl (Ultram) 100 mg Q4HP PRN PO SEVERE PAIN (PS 8-10) 05/10/20 08:45 Allergies Coded Allergies: Penicillins (Verified Allergy, Mild, rash/hives, 05/09/20) morphine (Verified Allergy, Unknown, rash/fevers, 05/09/20) Objective Physical Examination Examination GENERAL APPEARANCE:Patient seen, laying in bed, awake, alert, and oriented. Comfortable, in no acute distress. SKIN: Warm and moist. BREAST: Right and left soft, non-tender. LUNGS: Clear to auscultation bilaterally. No wheezing appreciated. HEART: No chest wall abnormalities. Regular rate and rhythm with no murmurs appreciated. ABDOMEN: Abdomen is soft, non-tender, non-distended. Incision intact. Umbilicus viable. LILIA drains with serosanguinous drainage. L 1-30, 2-50, R 1-50, 2-60 cc/24hr. Total 190cc. Slight dark color blood oozing at the edge of the incision. No active bleeding. Flap viable. Moderate ecchymosis upper thigh right side. EXTREMITIES: No edema identified. No calf tenderness. Vital Signs Vital Signs Date Time Temp Pulse Resp B/P (MAP) Pulse Ox O2 Delivery O2 Flow Rate FiO2 05/10/20 06:12 96.3 104 20 109/70 (83) 97 Room Air 05/09/20 21:00 2.0 I&Os I&O- Last 24 Hours up to 6 AM 05/10/20 05:59 Intake Total 3725 ml Output Total 450 ml Balance 3275 ml Laboratory Data Labs 24H Laboratory Tests 2 05/09/20 12:59: Bedside Glucose (Misc Panel) 203H 05/09/20 16:42: Bedside Glucose (Misc Panel) 155H 05/10/20 00:13: Bedside Glucose (Misc Panel) 224H 05/10/20 06:24: Bedside Glucose (Misc Panel) 186H 05/10/20 06:34: Immature Granulocyte % (Auto) 0.3, Neutrophils (%) (Auto) 67.9H, Lymphocytes (%) (Auto) 18.2L, Monocytes (%) (Auto) 12.7H, Eosinophils (%) (Auto) 0.5, Basophils (%) (Auto) 0.4, Neutrophils # (Auto) 10.2H, Lymphocytes # (Auto) 2.7, Monocytes # (Auto) 1.9H, Eosinophils # (Auto) 0.1, Basophils # (Auto) 0.1, Nucleated Red Blood Cells % (auto) 0.0 CBC/BMP Laboratory Tests 05/10/20 06:34 Impression Status post extended panniculectomy postop day 1. Expected blood loss due to nature procedure and pannus weighing 9-1/2 pounds. HGb 9.1, but since patient is symptomatic, she will benefits from blood transfusion. Transfuse 2 PRBC today. Continue with monitoring. Continue with IV fluids. Blood sugar control. Out of bed with help only. Findings discussed with the patient. Plan / VTE VTE Prophylaxis Ordered?: Yes SERA MOY DO May 10, 2020 09:28
[2020-05-10] MEDS: traMADol 50 MG TAB PO PRN ×3 (09:47→22:30)
[2020-05-10] MEDS: CLINDAMYCIN 300 MG in IV 1 EA IV SCH ×2 (12:05→18:05)
[2020-05-10] MEDS: LR 1,000 ML IV SCH (12:09)
[2020-05-10] MEDS: ACETAMINOPHEN TAB 650MG DOSE (2X325MG) PO PRN ×3 (16:01→22:00)
[2020-05-10 16:44] LABS: HEMATOCRIT 26.7 % (36.0-47.0); HEMOGLOBIN 8.7 g/dl (12.0-15.5); MEAN CORPUSCULAR HEMOGLOBIN 29.4 pg (27.0-33.0); MEAN CORPUSCULAR HGB CONC 32.6 g/dl (32.0-36.5); MEAN CORPUSCULAR VOLUME 90.2 fl (80.0-96.0); PLATELET COUNT, AUTOMATED 170 10^3/uL (150-450); RED BLOOD COUNT 2.96 10^6/uL (4.00-5.40); WHITE BLOOD COUNT 12.6 10^3/uL (4.0-10.0)
[2020-05-11 00:20] VITALS: BP 120/73
[2020-05-11] MEDS: CLINDAMYCIN 300 MG in IV 1 EA IV SCH ×3 (03:40→18:30)
[2020-05-11] MEDS: LR 1,000 ML IV SCH (03:40)
[2020-05-11] MEDS: traMADol 50 MG TAB PO PRN ×5 (05:42→23:29)
[2020-05-11 06:11] VITALS: BP 122/76
[2020-05-11] MEDS: HumaLOG INSULIN (NovoLOG) PER UNIT SC SCH ×4 (08:09→20:12)
[2020-05-11] MEDS: FLUoxetine 20 MG CAP PO SCH (08:09)
[2020-05-11] MEDS: ATORVASTATIN 20 MG TAB PO SCH (08:10)
[2020-05-11] MEDS: OMEPRAZOLE 20 MG CAP PO SCH (08:10)
[2020-05-11] MEDS: SITagliptin 50 MG TAB (JANUVIA) PO SCH (08:11)
[2020-05-11] MEDS: medroxyPROGESTERone 5MG TABLET PO SCH (08:11)
[2020-05-11 08:23] LABS: HEMATOCRIT 26.8 % (36.0-47.0); HEMOGLOBIN 8.6 g/dl (12.0-15.5); MEAN CORPUSCULAR HEMOGLOBIN 28.9 pg (27.0-33.0); MEAN CORPUSCULAR HGB CONC 32.1 g/dl (32.0-36.5); MEAN CORPUSCULAR VOLUME 89.9 fl (80.0-96.0); PLATELET COUNT, AUTOMATED 138 10^3/uL (150-450); RED BLOOD COUNT 2.98 10^6/uL (4.00-5.40); WHITE BLOOD COUNT 11.4 10^3/uL (4.0-10.0)
--- NOTE | 2020-05-11 09:33 | IPNPDOC ---
Subjective General Date Seen: May 11, 2020 Subject Chief Complaint/History The patient is a 44-year-old female admitted with a reason for visit of Panniculitis, Separation Of Muscle. S/p panniculectomy POD 2. Pain controlled with Tramadol. Ambulating, dizziness is resolved. Patient feeling better. Current Medications Current Medications Current Medications Medications (Trade) Dose Ordered Sig/Diane Route PRN Reason Start Time Stop Time Status Last Admin Dose Admin Acetaminophen (Tylenol Tab) 650 mg Q6H PRN PO MILD PAIN (PS 1-4) 05/09/20 12:00 05/10/20 22:00 Atorvastatin Calcium (Lipitor) 40 mg DAILY PO 05/09/20 09:00 05/11/20 08:10 Clindamycin Phosphate 300 mg/ IV Miscellaneous Supplies 50 ml @ 100 mls/hr Q8H IV 05/10/20 11:00 05/11/20 03:40 Dextrose (Dextrose 50%) 25 ml ASDIRECTED PRN IV SEE LABEL COMMENTS 05/09/20 12:00 05/09/20 12:23 DC Dextrose (Dextrose 50%) 25 ml ASDIRECTED PRN IV SEE LABEL COMMENTS 05/09/20 12:30 Fentanyl Citrate (Sublimaze) 25 mcg Q5MP PRN IV PAIN LEVEL 5-10 05/09/20 11:45 05/09/20 12:45 DC Fluoxetine HCl (PROzac) 40 mg DAILY PO 05/09/20 09:00 05/11/20 08:09 Glucagon (Glucagon) 1 mg ASDIRECTED PRN SC SEE LABEL COMMENTS 05/09/20 12:00 UNV Glucagon (Glucagon) 1 mg ASDIRECTED PRN SC SEE LABEL COMMENTS 05/09/20 12:30 Glucose (Glucose) 16 GM ASDIRECTED PRN PO SEE LABEL COMMENTS 05/09/20 12:00 UNV Glucose (Glucose) 16 GM ASDIRECTED PRN PO SEE LABEL COMMENTS 05/09/20 12:30 Insulin Human Lispro (HumaLOG INSULIN) SEE PROTOCOL TABLE AC SC 05/09/20 12:00 05/11/20 08:09 Ketorolac Tromethamine (ToRADol) 10 mg Q6HP PRN PO MODERATE PAIN (PS 5-7) 05/09/20 12:00 05/10/20 09:15 DC 05/09/20 17:23 Lactated Ringer's 1,000 ml @ 75 mls/hr [id number] IV 05/09/20 11:53 05/11/20 03:40 Lactated Ringer's 1,000 ml @ 100 mls/hr Q10H IV 05/09/20 11:45 05/09/20 12:45 DC Medroxyprogesterone Acetate (Provera) 5 mg DAILY PO 05/09/20 09:00 05/11/20 08:11 Meperidine HCl (Demerol) 12.5 mg Q5MP PRN IV SHIVERING 05/09/20 11:45 05/09/20 12:45 DC Metoclopramide HCl (REGLAN INJection) 10 mg Q6HP PRN IV NAUSEA OR VOMITING 05/09/20 11:45 05/09/20 12:45 DC Miscellaneous (Unresolved Clarification Entry) SEE LABEL COMMENTS DAILY XX 05/09/20 09:00 05/09/20 07:14 DC Miscellaneous (Unresolved Clarification Entry) SEE LABEL COMMENTS DAILY XX 05/09/20 09:00 05/10/20 08:34 DC Miscellaneous (Unresolved Clarification Entry) SEE LABEL COMMENTS DAILY XX 05/10/20 09:00 05/10/20 09:15 DC Omeprazole (PriLOSEC) 40 mg DAILY PO 05/10/20 09:00 05/11/20 08:10 Ondansetron HCl (ZOFRAN INJection) 4 mg Q4H PRN IV NAUSEA OR VOMITING 05/09/20 12:00 05/09/20 22:06 Ondansetron HCl (ZOFRAN INJection) 4 mg Q4HP PRN IV NAUSEA OR VOMITING 05/09/20 11:45 05/09/20 12:45 DC Oxycodone HCl (Roxicodone, Oxyir) 5 mg ASDIRECTED PRN PO PAIN LEVEL 1-4 05/09/20 11:45 05/09/20 12:45 DC Oxycodone/ Acetaminophen (Percocet 5mg/ 325mg Tablet) 2 tab Q4HP PRN PO PAIN LEVEL 8-10 05/09/20 12:00 05/10/20 08:34 DC 05/09/20 20:20 Sitagliptin Phosphate (Januvia) 50 mg DAILY PO 05/09/20 09:00 05/11/20 08:11 Tramadol HCl (Ultram) 50 mg Q4HP PRN PO MODERATE PAIN (PS 5-7) 05/10/20 08:45 05/10/20 18:04 Tramadol HCl (Ultram) 100 mg Q4HP PRN PO SEVERE PAIN (PS 8-10) 05/10/20 08:45 05/11/20 05:42 Allergies Coded Allergies: Penicillins (Verified Allergy, Mild, rash/hives, 05/09/20) morphine (Verified Allergy, Unknown, rash/fevers, 05/09/20) Objective Physical Examination Examination GENERAL APPEARANCE:Patient seen, laying in bed, awake, alert, and oriented. Comfortable, in no acute distress. SKIN: Warm and moist. LUNGS: Clear to auscultation bilaterally. No wheezing appreciated. HEART: No chest wall abnormalities. Regular rate and rhythm with no murmurs appreciated. ABDOMEN: Abdomen is soft, non-tender, non-distended. Incision intact. Umbilicus viable. LILIA drains with serosanguinous drainage. L 1-45, 2-70, R 1-45, 2- 72cc/24hr each drain. EXTREMITIES: No edema identified. No calf tenderness. Vital Signs Vital Signs Date Time Temp Pulse Resp B/P (MAP) Pulse Ox O2 Delivery O2 Flow Rate FiO2 05/11/20 06:12 18 05/11/20 06:11 97.5 92 122/76 (91) 97 Room Air 05/09/20 21:00 2.0 I&Os I&O- Last 24 Hours up to 6 AM 05/11/20 06:00 Intake Total 2459 ml Output Total 1194 ml Balance 1265 ml Laboratory Data Labs 24H Laboratory Tests 2 05/10/20 12:00: Bedside Glucose (Misc Panel) 194H 05/10/20 16:34: Nucleated Red Blood Cells % (auto) 0.0 05/10/20 17:50: Bedside Glucose (Misc Panel) 126H 05/11/20 00:23: Bedside Glucose (Misc Panel) 118H 05/11/20 06:34: Bedside Glucose (Misc Panel) 117H 05/11/20 07:42: Nucleated Red Blood Cells % (auto) 0.0 CBC/BMP Laboratory Tests 05/10/20 16:34 05/11/20 07:42 Impression S/p panniculectomy POD 2. Feeling well. Tolerated transfusion well. D/c IVF. Monitor urine output. Repeat CBC at 3 pm Keep HOB at 45. Continue with observation. Plan / VTE VTE Prophylaxis Ordered?: Yes SERA MOY DO May 11, 2020 09:33
[2020-05-11] MEDS: estradioL 1 MG TAB PO SCH (10:15)
--- NOTE | 2020-05-11 10:17 | REP ---
INDICATION: positive fluid balance. COMPARISON: Comparison chest x-ray 09/07/2018. TECHNIQUE: Portable upright AP chest radiograph. FINDINGS: The lungs are well inflated and free of infiltrate. Pleural angles are sharp. Heart size is normal. Pulmonary vasculature is not increased. IMPRESSION: No active disease. <Electronically signed by Parish Gordon > 05/11/20 1014
[2020-05-11 10:30] LABS: BLOOD UREA NITROGEN 8 MG/DL (7-18); CARBON DIOXIDE LEVEL 29 MEQ/L (21-32); CHLORIDE LEVEL 106 MEQ/L (98-107); CREATININE FOR GFR 0.54 MG/DL (0.55-1.30); GLOMERULAR FILTRATION RATE > 60.0 (>58); GLUCOSE, FASTING 128 MG/DL (70-100); NT-PRO BNP 57 PG/ML (<125); POTASSIUM SERUM 3.9 MEQ/L (3.5-5.1); SODIUM LEVEL 142 MEQ/L (136-145)
--- NOTE | 2020-05-11 10:48 | HPEPDOC ---
[facility] Medical History & Physical Date of Admission May 11, 2020 Date of Service: May 11, 2020 Primary Care Physician: Jenna Johnson MD Attending Physician: MAURI CALDERON MD History and Physical CHIEF COMPLAINT: Possible fluid overload HISTORY OF PRESENT ILLNESS: Patient is a 44-year-old female who had a panniculectomy (9.5 lbs pannus) by Dr. Levine on 05/09/20. The surgery itself went well, patient did experience some symptomatic anemia requiring transfusion of x2 PRBCs, but has otherwise been stable. Dr. Levine reached out to the hospitalist service as she is concerned that the patient has had 6 L of fluid with only 2 L of urine output in the last 48 hours. She is asking that we take over as primary to look into possible fluid overload. Patient states that she is been feeling well with only some transient dizziness on post op day 1. She otherwise is doing well the past 48 hours and has had no fevers, chills, chest pain, shortness of breath, lower extremity swelling, or abdominal swelling. She does admit to some abdominal discomfort but states that it is under control. PAST MEDICAL HISTORY: Type 2 diabetes Depression/anxiety Dyslipidemia Vitamin D deficiency GERD Surgically induced menopause Morbid obesity PAST SURGICAL HISTORY: Cholecystectomy (1998) Tonsillectomy (2002) Abdominal hysterectomy (2005) Tubal ligation 2004 Right carpal tunnel surgery 2012 Left carpal tunnel and left elbow 2014 Gastric bypass 11/2017 Lump removed from back 04/2018 Panniculectomy 04/2020 SOCIAL HISTORY: Former smoker, quit in February 2020. Denies any alcohol use. Denies marijuana, heroin, cocaine, PCP, or other illicit drug use. FAMILY HISTORY: Grandmother with DVT. No family history of CHF, cirrhosis, heart disease. ALLERGIES: Please see below. REVIEW OF SYSTEMS: Constitutional: Denies fevers, chills, night sweats, or recent unepected weight change HEENT: Denies headaches, head trauma, no visual changes or eye pain, denies nosebleeds or difficulty swallowing. Cardiovascular: Denies chest pain, palpitations, or orthopnea. Respiratory: Denies cough, wheezing, or shortness of breath GI: Denies nausea, vomiting, diarrhea, or constipation : Denies pain with urination or frequency Musculoskeletal: Denies joint pain or swelling Neuro/psych: Denies muscle weakness or sensory loss Skin: Denies skin rashes HOME MEDICATIONS: Please see below. PHYSICAL EXAMINATION: VITAL SIGNS: See below GENERAL APPEARANCE: Well-appearing female sitting comfortably in bed in no acute distress speaking in complete sentences HEENT: NC, AT, EOMI, no scleral icterus, moist mucous membranes, no pharyngeal erythema. CARDIOVASCULAR: RRR, normal S1-S2. No murmurs, gallops, rubs. LUNGS: CTAB with full breath sounds, no wheezes, crackles, or rhonchi. ABDOMEN: Abdominal binder in place. Abdomen is obese, mildly tender to palpation, nondistended, bowel sounds present. No CVA tenderness., X4 LILIA drains in place. EXTREMITIES: No swelling or edema NEUROLOGICAL: No focal or sensory deficits. CN II-XII grossly intact. PSYCHIATRIC: Normal mood and affect LABORATORY DATA: See below. 05/11/20 chest x-ray: No signs of costophrenic angle blunting otherwise normal chest x-ray. MICROBIOLOGY: Please see below. Assessment/Plan: #. Positive fluid balance -Patient is clinically not showing any signs of fluid overload at this time. CXR is clear, BMP is unremarkable, BNP of 57 -1800 mL fluid restriction, strict I's and O's, daily weights. No indication for diuretics at this time. #. S/p panniculectomy on 05/09 -Clindamycin per Dr. Levine -S/p 2 transfusion 2 units of PRBCs -Continue tramadol as needed for pain. Well-controlled at this time. - 190 cc fluid drained/24 hrs on day 1, 232 cc fluid drained/24 hrs on day 2. Normocytic anemia - s/p 2 units PRBC - No evidence of maria r bleeding - Will continue to follow CBC #. Type 2 diabetes -A1c of 6.2% in 03/2020 -Stop Januvia, continue sliding scale AC/HS #. Depression/anxiety -Continue fluoxetine #. Dyslipidemia -Senior atorvastatin #. GERD -Continue omeprazole #. Surgically induced menopause -Continue estradiol and Provera DVT prophylaxis: Per plastic surgery. GI prophylaxis: On omeprazole Disposition: Anticipate discharge tomorrow Vital Signs Vital Signs Date Time Temp Pulse Resp B/P (MAP) Pulse Ox O2 Delivery O2 Flow Rate FiO2 05/11/20 06:12 18 05/11/20 06:11 97.5 92 122/76 (91) 97 Room Air 05/09/20 21:00 2.0 Laboratory Data Labs 24H Laboratory Tests 2 05/10/20 12:00: Bedside Glucose (Misc Panel) 194H 05/10/20 16:34: Nucleated Red Blood Cells % (auto) 0.0 05/10/20 17:50: Bedside Glucose (Misc Panel) 126H 05/11/20 00:23: Bedside Glucose (Misc Panel) 118H 05/11/20 06:34: Bedside Glucose (Misc Panel) 117H 05/11/20 07:42: Nucleated Red Blood Cells % (auto) 0.0 CBC/BMP Laboratory Tests 05/10/20 16:34 05/11/20 07:42 Home Medications Scheduled Atorvastatin Calcium (Atorvastatin Calcium) 40 Mg Tablet, 40 MG PO DAILY Cyanocobalamin (Vitamin B-12) (Vitamin B12) 2,500 Mcg Tablet, 1,000 MCG PO DAILY Ergocalciferol (Vitamin D2) (Vitamin D2) 50,000 Units Cap, 50,000 MG PO QWEEK Estradiol (Estradiol) 2 Mg Tablet, 2 MG PO DAILY Fluoxetine Hcl (Fluoxetine HCl) 40 Mg Capsule, 40 MG PO DAILY Medroxyprogesterone Acetate (Medroxyprogesterone Acetate) 5 Mg Tablet, 5 MG PO DAILY Omeprazole (Omeprazole) 40 Mg Capsule.dr, 40 MG PO DAILY Sitagliptin (Januvia) 50 Mg Tablet, 50 MG PO DAILY Allergies Coded Allergies: Penicillins (Verified Allergy, Mild, rash/hives, 05/09/20) morphine (Verified Allergy, Unknown, rash/fevers, 05/09/20) GME ATTESTATION GME ATTESTATION My faculty preceptor for this patient encounter was physically present during the encounter and was fully available. All aspects of the patient interview, examination, medical decision making process, and medical care plan development were reviewed and approved by the faculty preceptor. The faculty preceptor is aware and concurs with the plan as stated in the body of this note and will attest to such by his/her cosignature. ATTENDING NOTE I, Mauri Calderon, have independently examined this patient and performed my own physical exam, as well as reviewed the documentation and edited where necessary. I have discussed in detail with the resident / student the findings and plan of treatment as documented by the resident / student and edited their note. I agree with their findings and treatment plan and have edited their documentation. I will continue to follow the patient during this hospital stay. JENNA SCHUMACHER DO May 11, 2020 10:48 MAURI CALDERON MD May 11, 2020 14:13
[2020-05-11 14:00] VITALS: BP 119/74
[2020-05-11 14:58] LABS: HEMATOCRIT 26.7 % (36.0-47.0); HEMOGLOBIN 8.7 g/dl (12.0-15.5); MEAN CORPUSCULAR HEMOGLOBIN 29.7 pg (27.0-33.0); MEAN CORPUSCULAR HGB CONC 32.6 g/dl (32.0-36.5); MEAN CORPUSCULAR VOLUME 91.1 fl (80.0-96.0); PLATELET COUNT, AUTOMATED 132 10^3/uL (150-450); RED BLOOD COUNT 2.93 10^6/uL (4.00-5.40); WHITE BLOOD COUNT 11.6 10^3/uL (4.0-10.0)
[2020-05-11 22:00] VITALS: BP 120/75
[2020-05-12] MEDS: CLINDAMYCIN 300 MG in IV 1 EA IV SCH (03:27)
[2020-05-12] MEDS: traMADol 50 MG TAB PO PRN ×5 (03:53→21:26)
[2020-05-12 06:21] VITALS: BP 113/77
[2020-05-12] MEDS: HumaLOG INSULIN (NovoLOG) PER UNIT SC SCH ×4 (07:30→20:36)
[2020-05-12] MEDS: FLUoxetine 20 MG CAP PO SCH (08:28)
[2020-05-12] MEDS: OMEPRAZOLE 20 MG CAP PO SCH (08:28)
[2020-05-12] MEDS: ATORVASTATIN 20 MG TAB PO SCH (08:29)
[2020-05-12] MEDS: estradioL 1 MG TAB PO SCH (08:30)
[2020-05-12] MEDS: medroxyPROGESTERone 5MG TABLET PO SCH (08:30)
[2020-05-12 08:39] LABS: BASO # 0.1 10^3/uL (0.0-0.2); BASO % 0.5 % (0.0-1.0); EOS # 0.2 10^3/uL (0.0-0.5); EOS % 1.8 % (0.0-3.0); HEMATOCRIT 27.6 % (36.0-47.0); HEMOGLOBIN 8.8 g/dl (12.0-15.5); LYMPH % 29.7 % (24.0-44.0); MEAN CORPUSCULAR HEMOGLOBIN 28.9 pg (27.0-33.0); MEAN CORPUSCULAR HGB CONC 31.9 g/dl (32.0-36.5); MEAN CORPUSCULAR VOLUME 90.8 fl (80.0-96.0); MONO # 0.9 10^3/uL (0.0-0.8); MONO % 8.7 % (0.0-5.0); NEUTROPHILS % 58.9 % (36.0-66.0); PLATELET COUNT, AUTOMATED 148 10^3/uL (150-450); RED BLOOD COUNT 3.04 10^6/uL (4.00-5.40); WHITE BLOOD COUNT 10.2 10^3/uL (4.0-10.0)
[2020-05-12] MEDS ORDERED: FERR325T3 PO (08:48)
[2020-05-12] MEDS ORDERED: CLIN150C15 PO (08:48)
--- NOTE | 2020-05-12 10:15 | IPNPDOC ---
Subjective General Date Seen: May 12, 2020 Subject Chief Complaint/History The patient is a 44-year-old female admitted with a reason for visit of Panniculitis, Separation Of Muscle. Current Medications Current Medications Current Medications Medications (Trade) Dose Ordered Sig/Diane Route PRN Reason Start Time Stop Time Status Last Admin Dose Admin Acetaminophen (Tylenol Tab) 650 mg Q6H PRN PO MILD PAIN (PS 1-4) 05/09/20 12:00 05/10/20 22:00 Atorvastatin Calcium (Lipitor) 40 mg DAILY PO 05/09/20 09:00 05/12/20 08:29 Clindamycin Phosphate 300 mg/ IV Miscellaneous Supplies 50 ml @ 100 mls/hr Q8H IV 05/10/20 11:00 05/12/20 03:27 Dextrose (Dextrose 50%) 25 ml ASDIRECTED PRN IV SEE LABEL COMMENTS 05/09/20 12:00 05/09/20 12:23 DC Dextrose (Dextrose 50%) 25 ml ASDIRECTED PRN IV SEE LABEL COMMENTS 05/09/20 12:30 Estradiol (Estrace) 2 mg DAILY PO 05/11/20 09:00 05/12/20 08:30 Fentanyl Citrate (Sublimaze) 25 mcg Q5MP PRN IV PAIN LEVEL 5-10 05/09/20 11:45 05/09/20 12:45 DC Fluoxetine HCl (PROzac) 40 mg DAILY PO 05/09/20 09:00 05/12/20 08:28 Glucagon (Glucagon) 1 mg ASDIRECTED PRN SC SEE LABEL COMMENTS 05/09/20 12:00 UNV Glucagon (Glucagon) 1 mg ASDIRECTED PRN SC SEE LABEL COMMENTS 05/09/20 12:30 Glucose (Glucose) 16 GM ASDIRECTED PRN PO SEE LABEL COMMENTS 05/09/20 12:00 UNV Glucose (Glucose) 16 GM ASDIRECTED PRN PO SEE LABEL COMMENTS 05/09/20 12:30 Insulin Human Lispro (HumaLOG INSULIN) SEE PROTOCOL TABLE AC SC 05/09/20 12:00 05/11/20 12:21 Insulin Human Lispro (HumaLOG INSULIN) SEE PROTOCOL TABLE QHS SC 05/11/20 21:00 Ketorolac Tromethamine (ToRADol) 10 mg Q6HP PRN PO MODERATE PAIN (PS 5-7) 05/09/20 12:00 05/10/20 09:15 DC 05/09/20 17:23 Lactated Ringer's 1,000 ml @ 75 mls/hr [id number] IV 05/09/20 11:53 05/11/20 14:16 DC 05/11/20 03:40 Lactated Ringer's 1,000 ml @ 100 mls/hr Q10H IV 05/09/20 11:45 05/09/20 12:45 DC Medroxyprogesterone Acetate (Provera) 5 mg DAILY PO 05/09/20 09:00 05/12/20 08:30 Meperidine HCl (Demerol) 12.5 mg Q5MP PRN IV SHIVERING 05/09/20 11:45 05/09/20 12:45 DC Metoclopramide HCl (REGLAN INJection) 10 mg Q6HP PRN IV NAUSEA OR VOMITING 05/09/20 11:45 05/09/20 12:45 DC Miscellaneous (Unresolved Clarification Entry) SEE LABEL COMMENTS DAILY XX 05/09/20 09:00 05/09/20 07:14 DC Miscellaneous (Unresolved Clarification Entry) SEE LABEL COMMENTS DAILY XX 05/09/20 09:00 05/10/20 08:34 DC Miscellaneous (Unresolved Clarification Entry) SEE LABEL COMMENTS DAILY XX 05/10/20 09:00 05/10/20 09:15 DC Omeprazole (PriLOSEC) 40 mg DAILY PO 05/10/20 09:00 05/12/20 08:28 Ondansetron HCl (ZOFRAN INJection) 4 mg Q4H PRN IV NAUSEA OR VOMITING 05/09/20 12:00 05/09/20 22:06 Ondansetron HCl (ZOFRAN INJection) 4 mg Q4HP PRN IV NAUSEA OR VOMITING 05/09/20 11:45 05/09/20 12:45 DC Oxycodone HCl (Roxicodone, Oxyir) 5 mg ASDIRECTED PRN PO PAIN LEVEL 1-4 05/09/20 11:45 05/09/20 12:45 DC Oxycodone/ Acetaminophen (Percocet 5mg/ 325mg Tablet) 2 tab Q4HP PRN PO PAIN LEVEL 8-10 05/09/20 12:00 05/10/20 08:34 DC 05/09/20 20:20 Sitagliptin Phosphate (Januvia) 50 mg DAILY PO 05/09/20 09:00 05/11/20 10:33 DC 05/11/20 08:11 Tramadol HCl (Ultram) 50 mg Q4HP PRN PO MODERATE PAIN (PS 5-7) 05/10/20 08:45 05/10/20 18:04 Tramadol HCl (Ultram) 100 mg Q4HP PRN PO SEVERE PAIN (PS 8-10) 05/10/20 08:45 05/12/20 08:29 Allergies Coded Allergies: Penicillins (Verified Allergy, Mild, rash/hives, 05/09/20) morphine (Verified Allergy, Unknown, rash/fevers, 05/09/20) Objective Physical Examination Examination GENERAL APPEARANCE:Patient seen, laying in bed, awake, alert, and oriented. Comfortable, in no acute distress. SKIN: Warm and moist. LUNGS: Clear to auscultation bilaterally. No wheezing appreciated. HEART: No chest wall abnormalities. Regular rate and rhythm with no murmurs appreciated. ABDOMEN: Abdomen is soft, non-tender, non-distended. Incision intact. Umbilicus viable. Ecchymosis right and left abdominal area extending to groin, soft. No collection on palpation. LILIA drains with serosanguinous drainage. L 110/170, R 170/40 cc/24hr. EXTREMITIES: No edema identified. No calf tenderness. Vital Signs Vital Signs Date Time Temp Pulse Resp B/P (MAP) Pulse Ox O2 Delivery O2 Flow Rate FiO2 05/12/20 08:29 16 05/12/20 06:21 98.7 87 113/77 (89) 95 Room Air 05/09/20 21:00 2.0 I&Os I&O- Last 24 Hours up to 6 AM 05/12/20 06:00 Intake Total 1000 ml Output Total 1430 ml Balance -430 ml Laboratory Data Labs 24H Laboratory Tests 2 05/11/20 11:52: Bedside Glucose (Misc Panel) 107H 05/11/20 14:41: Nucleated Red Blood Cells % (auto) 0.0 05/11/20 16:38: Bedside Glucose (Misc Panel) 81 05/11/20 20:01: Bedside Glucose (Misc Panel) 96 05/12/20 08:17: Immature Granulocyte % (Auto) 0.4, Neutrophils (%) (Auto) 58.9, Lymphocytes (%) (Auto) 29.7, Monocytes (%) (Auto) 8.7H, Eosinophils (%) (Auto) 1.8, Basophils (%) (Auto) 0.5, Neutrophils # (Auto) 6.0, Lymphocytes # (Auto) 3.0, Monocytes # (Auto) 0.9H, Eosinophils # (Auto) 0.2, Basophils # (Auto) 0.1, Nucleated Red Blood Cells % (auto) 0.0 05/12/20 08:23: Bedside Glucose (Misc Panel) 100 CBC/BMP Laboratory Tests 05/11/20 14:41 05/12/20 08:17 Impression S/p Panniculectomy POD 3. Clinically stable. BS improved No dizziness. Feeling well. Drain output increased yesterday. H/H stable. Will continue with output monitoring from the drains. Start with Ferrous sulfate. Plan / VTE VTE Prophylaxis Ordered?: Yes SERA MOY DO May 12, 2020 10:14
--- NOTE | 2020-05-12 10:16 | IPNPDOC ---
Text Note Date of Service The patient was seen on 05/12/20. NOTE Subjective: Patient is a 44-year-old female who underwent panniculectomy (9.5 lbs pannus) by Dr. Levine on 05/09/20. The surgery itself went well, patient did experience some symptomatic anemia requiring transfusion of x2 PRBCs, but has otherwise been stable. Hospital services consulted for anemia and management of volume status. Patient was seen and examined at the bedside. Currently patient reports that her breathing is doing fine. Denies any cough or chest pain. Denies any nausea, vomiting, or diarrhea. Reports some abdominal discomfort out of bed and ambulating Objective: Vitals (See below) General: Lying in bed, no acute distress, comfortable, AAOx3 HEENT: NC, AT CVS: +S1S2 Lungs: Fair air entry b/l, -w/r/r Abdomen: Soft, Obese, Mild tenderness, LILIA [place] x4 Extremities: - Edema, - Calf tenderness Assessment and plan: s/p Panniculectomy on 05/09 - LILIA drains in place - c/w tramadol as needed for pain - Dr. Levine following Normocytic anemia - s/p 2 units PRBC - No evidence of maria r bleeding; output from LILIA drains remains serosanguineous - Hg stable NIDDM2 - A1c of 6.2% in 03/2020 - c/w ISS Depression / Anxiety - c/w fluoxetine DLP - c/w Atorvastatin Surgically induced menopause - c/w estradiol and Provera GERD - c/w Omeprazole DVT prophylaxis - As per surgery Disposition: - Possible DC within 24 hours VSAry, I+O VSAry, I+O Laboratory Tests 05/11/20 14:41 05/12/20 08:17 Vital Signs Date Time Temp Pulse Resp B/P (MAP) Pulse Ox O2 Delivery O2 Flow Rate FiO2 05/12/20 08:29 16 05/12/20 06:21 98.7 87 113/77 (89) 95 Room Air 05/09/20 21:00 2.0 I&O- Last 24 Hours up to 6 AM 05/12/20 05:59 Intake Total 1000 ml Output Total 1430 ml Balance -430 ml SHIRA SCHAFER MD May 12, 2020 10:16
[2020-05-12] MEDS: FERROUS SULFATE 325MG TAB PO SCH ×2 (10:58→19:59)
[2020-05-12 14:00] VITALS: BP 96/68
[2020-05-12] MEDS: CLINDAMYCIN 150MG CAPSULE PO SCH ×2 (14:07→21:25)
[2020-05-12 15:50] LABS: BASO # 0.1 10^3/uL (0.0-0.2); BASO % 0.5 % (0.0-1.0); EOS # 0.2 10^3/uL (0.0-0.5); EOS % 1.7 % (0.0-3.0); HEMATOCRIT 25.9 % (36.0-47.0); HEMOGLOBIN 8.4 g/dl (12.0-15.5); LYMPH # 2.8 10^3/uL (1.5-5.0); LYMPH % 24.6 % (24.0-44.0); MEAN CORPUSCULAR HEMOGLOBIN 29.3 pg (27.0-33.0); MEAN CORPUSCULAR HGB CONC 32.4 g/dl (32.0-36.5); MEAN CORPUSCULAR VOLUME 90.2 fl (80.0-96.0); MONO # 0.9 10^3/uL (0.0-0.8); MONO % 8.3 % (0.0-5.0); NEUTROPHILS # 7.3 10^3/uL (1.5-8.5); NEUTROPHILS % 64.5 % (36.0-66.0); PLATELET COUNT, AUTOMATED 158 10^3/uL (150-450); RED BLOOD COUNT 2.87 10^6/uL (4.00-5.40); WHITE BLOOD COUNT 11.3 10^3/uL (4.0-10.0)
--- NOTE | 2020-05-12 16:17 | IPNPDOC ---
Subjective General Date Seen: May 12, 2020 Subject Chief Complaint/History The patient is a 44-year-old female admitted with a reason for visit of Panniculitis, Separation Of Muscle. Patient seen and examined. She is comfortable in bed. Ambulating herself to the bathroom, no pain, no dizziness. Drain still with steady serosanguinous - sanguinous output. Current Medications Current Medications Current Medications Medications (Trade) Dose Ordered Sig/Diane Route PRN Reason Start Time Stop Time Status Last Admin Dose Admin Acetaminophen (Tylenol Tab) 650 mg Q6H PRN PO MILD PAIN (PS 1-4) 05/09/20 12:00 05/10/20 22:00 Atorvastatin Calcium (Lipitor) 40 mg DAILY PO 05/09/20 09:00 05/12/20 08:29 Clindamycin Phosphate 300 mg/ IV Miscellaneous Supplies 50 ml @ 100 mls/hr Q8H IV 05/10/20 11:00 05/12/20 10:15 DC 05/12/20 03:27 Clindamycin HCl (Cleocin) 300 mg Q8H PO 05/12/20 14:00 05/12/20 14:07 Dextrose (Dextrose 50%) 25 ml ASDIRECTED PRN IV SEE LABEL COMMENTS 05/09/20 12:00 05/09/20 12:23 DC Dextrose (Dextrose 50%) 25 ml ASDIRECTED PRN IV SEE LABEL COMMENTS 05/09/20 12:30 Estradiol (Estrace) 2 mg DAILY PO 05/11/20 09:00 05/12/20 08:30 Fentanyl Citrate (Sublimaze) 25 mcg Q5MP PRN IV PAIN LEVEL 5-10 05/09/20 11:45 05/09/20 12:45 DC Ferrous Sulfate (Ferrous Sulfate) 325 mg BID PO 05/12/20 09:00 05/12/20 10:58 Fluoxetine HCl (PROzac) 40 mg DAILY PO 05/09/20 09:00 05/12/20 08:28 Glucagon (Glucagon) 1 mg ASDIRECTED PRN SC SEE LABEL COMMENTS 05/09/20 12:00 UNV Glucagon (Glucagon) 1 mg ASDIRECTED PRN SC SEE LABEL COMMENTS 05/09/20 12:30 Glucose (Glucose) 16 GM ASDIRECTED PRN PO SEE LABEL COMMENTS 05/09/20 12:00 UNV Glucose (Glucose) 16 GM ASDIRECTED PRN PO SEE LABEL COMMENTS 05/09/20 12:30 Insulin Human Lispro (HumaLOG INSULIN) SEE PROTOCOL TABLE AC SC 05/09/20 12:00 05/12/20 12:24 Insulin Human Lispro (HumaLOG INSULIN) SEE PROTOCOL TABLE QHS SC 05/11/20 21:00 Ketorolac Tromethamine (ToRADol) 10 mg Q6HP PRN PO MODERATE PAIN (PS 5-7) 05/09/20 12:00 05/10/20 09:15 DC 05/09/20 17:23 Lactated Ringer's 1,000 ml @ 75 mls/hr [id number] IV 05/09/20 11:53 05/11/20 14:16 DC 05/11/20 03:40 Lactated Ringer's 1,000 ml @ 100 mls/hr Q10H IV 05/09/20 11:45 05/09/20 12:45 DC Medroxyprogesterone Acetate (Provera) 5 mg DAILY PO 05/09/20 09:00 05/12/20 08:30 Meperidine HCl (Demerol) 12.5 mg Q5MP PRN IV SHIVERING 05/09/20 11:45 05/09/20 12:45 DC Metoclopramide HCl (REGLAN INJection) 10 mg Q6HP PRN IV NAUSEA OR VOMITING 05/09/20 11:45 05/09/20 12:45 DC Miscellaneous (Unresolved Clarification Entry) SEE LABEL COMMENTS DAILY XX 05/09/20 09:00 05/09/20 07:14 DC Miscellaneous (Unresolved Clarification Entry) SEE LABEL COMMENTS DAILY XX 05/09/20 09:00 05/10/20 08:34 DC Miscellaneous (Unresolved Clarification Entry) SEE LABEL COMMENTS DAILY XX 05/10/20 09:00 05/10/20 09:15 DC Omeprazole (PriLOSEC) 40 mg DAILY PO 05/10/20 09:00 05/12/20 08:28 Ondansetron HCl (ZOFRAN INJection) 4 mg Q4H PRN IV NAUSEA OR VOMITING 05/09/20 12:00 05/09/20 22:06 Ondansetron HCl (ZOFRAN INJection) 4 mg Q4HP PRN IV NAUSEA OR VOMITING 05/09/20 11:45 05/09/20 12:45 DC Oxycodone HCl (Roxicodone, Oxyir) 5 mg ASDIRECTED PRN PO PAIN LEVEL 1-4 05/09/20 11:45 05/09/20 12:45 DC Oxycodone/ Acetaminophen (Percocet 5mg/ 325mg Tablet) 2 tab Q4HP PRN PO PAIN LEVEL 8-10 05/09/20 12:00 05/10/20 08:34 DC 05/09/20 20:20 Sitagliptin Phosphate (Januvia) 50 mg DAILY PO 05/09/20 09:00 05/11/20 10:33 DC 05/11/20 08:11 Tramadol HCl (Ultram) 50 mg Q4HP PRN PO MODERATE PAIN (PS 5-7) 05/10/20 08:45 05/10/20 18:04 Tramadol HCl (Ultram) 100 mg Q4HP PRN PO SEVERE PAIN (PS 8-10) 05/10/20 08:45 05/12/20 12:28 Allergies Coded Allergies: Penicillins (Verified Allergy, Mild, rash/hives, 05/09/20) morphine (Verified Allergy, Unknown, rash/fevers, 05/09/20) Objective Physical Examination Examination GENERAL APPEARANCE:Patient seen, laying in bed, awake, alert, and oriented. Comfortable, in no acute distress. SKIN: Warm and moist. LUNGS: Clear to auscultation bilaterally. No wheezing appreciated. HEART: No chest wall abnormalities. Regular rate and rhythm with no murmurs appreciated. ABDOMEN: Abdomen is soft, non-tender, non-distended. No palpable collection. Incision intact. Umbilicus viable. LILIA drains with serosanguinous drainage. 285 cumulative from all abdominal drains cc since midnight. EXTREMITIES: No edema identified. No calf tenderness. Vital Signs Vital Signs Date Time Temp Pulse Resp B/P (MAP) Pulse Ox O2 Delivery O2 Flow Rate FiO2 05/12/20 14:00 97.4 80 16 96/68 (77) 100 Room Air 05/09/20 21:00 2.0 I&Os I&O- Last 24 Hours up to 6 AM 05/12/20 06:00 Intake Total 1000 ml Output Total 1430 ml Balance -430 ml Laboratory Data Labs 24H Laboratory Tests 2 05/11/20 16:38: Bedside Glucose (Misc Panel) 81 05/11/20 20:01: Bedside Glucose (Misc Panel) 96 05/12/20 08:17: Immature Granulocyte % (Auto) 0.4, Neutrophils (%) (Auto) 58.9, Lymphocytes (%) (Auto) 29.7, Monocytes (%) (Auto) 8.7H, Eosinophils (%) (Auto) 1.8, Basophils (%) (Auto) 0.5, Neutrophils # (Auto) 6.0, Lymphocytes # (Auto) 3.0, Monocytes # (Auto) 0.9H, Eosinophils # (Auto) 0.2, Basophils # (Auto) 0.1, Nucleated Red Bl ood Cells % (auto) 0.0 05/12/20 08:23: Bedside Glucose (Misc Panel) 100 05/12/20 11:32: Bedside Glucose (Misc Panel) 117H 05/12/20 15:38: Immature Granulocyte % (Auto) 0.4, Neutrophils (%) (Auto) 64.5, Lymphocytes (%) (Auto) 24.6, Monocytes (%) (Auto) 8.3H, Eosinophils (%) (Auto) 1.7, Basophils (%) (Auto) 0.5, Neutrophils # (Auto) 7.3, Lymphocytes # (Auto) 2.8, Monocytes # (Auto) 0.9H, Eosinophils # (Auto) 0.2, Basophils # (Auto) 0.1, Nucleated Red Blood Cells % (auto) 0.0 CBC/BMP Laboratory Tests 05/12/20 08:17 05/12/20 15:38 Impression s/p Panniculectomy POD 3. H/H 8.4/25.9 LILIA output steady. Recommend blood transfusion. If no improvement with drainage, will consider exploration. Findings and plan discussed with patient and medical team. Plan / VTE VTE Prophylaxis Ordered?: Yes SERA MOY DO May 12, 2020 16:17
[2020-05-12 18:01] VITALS: BP 112/74
[2020-05-12 18:17] VITALS: BP 112/74
[2020-05-12 18:58] VITALS: BP 113/73
[2020-05-12 21:02] LABS: HEMATOCRIT 28.4 % (36.0-47.0); HEMOGLOBIN 9.1 g/dl (12.0-15.5); MEAN CORPUSCULAR HEMOGLOBIN 28.7 pg (27.0-33.0); MEAN CORPUSCULAR VOLUME 89.6 fl (80.0-96.0); PLATELET COUNT, AUTOMATED 172 10^3/uL (150-450); RED BLOOD COUNT 3.17 10^6/uL (4.00-5.40); WHITE BLOOD COUNT 12.2 10^3/uL (4.0-10.0)
[2020-05-12] MEDS: ONDANSETRON 4MG/2ML VIAL IV PRN (21:31)
[2020-05-12 22:00] VITALS: BP 117/76
[2020-05-13] MEDS: traMADol 50 MG TAB PO PRN ×2 (01:32→07:55)
[2020-05-13 06:00] VITALS: BP 120/80
[2020-05-13] MEDS: CLINDAMYCIN 150MG CAPSULE PO SCH ×3 (06:04→22:29)
[2020-05-13 06:39] LABS: BASO # 0.1 10^3/uL (0.0-0.2); BASO % 0.5 % (0.0-1.0); EOS # 0.3 10^3/uL (0.0-0.5); EOS % 2.5 % (0.0-3.0); HEMOGLOBIN 9.4 g/dl (12.0-15.5); LYMPH # 3.2 10^3/uL (1.5-5.0); LYMPH % 30.1 % (24.0-44.0); MEAN CORPUSCULAR HEMOGLOBIN 29.3 pg (27.0-33.0); MEAN CORPUSCULAR HGB CONC 32.4 g/dl (32.0-36.5); MEAN CORPUSCULAR VOLUME 90.3 fl (80.0-96.0); MONO # 0.9 10^3/uL (0.0-0.8); MONO % 8.6 % (0.0-5.0); NEUTROPHILS # 6.1 10^3/uL (1.5-8.5); NEUTROPHILS % 57.9 % (36.0-66.0); PLATELET COUNT, AUTOMATED 186 10^3/uL (150-450); RED BLOOD COUNT 3.21 10^6/uL (4.00-5.40); WHITE BLOOD COUNT 10.5 10^3/uL (4.0-10.0)
[2020-05-13] MEDS: HumaLOG INSULIN (NovoLOG) PER UNIT SC SCH ×4 (07:30→23:14)
[2020-05-13] MEDS: FERROUS SULFATE 325MG TAB PO SCH ×2 (07:53→22:29)
[2020-05-13] MEDS: ATORVASTATIN 20 MG TAB PO SCH (07:54)
[2020-05-13] MEDS: OMEPRAZOLE 20 MG CAP PO SCH (07:54)
[2020-05-13] MEDS: medroxyPROGESTERone 5MG TABLET PO SCH (07:55)
[2020-05-13] MEDS: estradioL 1 MG TAB PO SCH (07:55)
[2020-05-13] MEDS: FLUoxetine 20 MG CAP PO SCH (07:56)
--- NOTE | 2020-05-13 09:37 | IPNPDOC ---
Subjective General Date Seen: May 13, 2020 Subject Chief Complaint/History The patient is a 44-year-old female admitted with a reason for visit of Panniculitis, Separation Of Muscle. Patient s/p panniculectomy POD 4. S/p transfusion yesterday. Patient feeling well. Pain controlled. Ambulating. Tolerating diet. Drain output started to coagulate. Current Medications Current Medications Current Medications Medications (Trade) Dose Ordered Sig/Diane Route PRN Reason Start Time Stop Time Status Last Admin Dose Admin Acetaminophen (Tylenol Tab) 650 mg Q6H PRN PO MILD PAIN (PS 1-4) 05/09/20 12:00 05/10/20 22:00 Atorvastatin Calcium (Lipitor) 40 mg DAILY PO 05/09/20 09:00 05/13/20 07:54 Clindamycin Phosphate 300 mg/ IV Miscellaneous Supplies 50 ml @ 100 mls/hr Q8H IV 05/10/20 11:00 05/12/20 10:15 DC 05/12/20 03:27 Clindamycin HCl (Cleocin) 300 mg Q8H PO 05/12/20 14:00 05/13/20 06:04 Dextrose (Dextrose 50%) 25 ml ASDIRECTED PRN IV SEE LABEL COMMENTS 05/09/20 12:00 05/09/20 12:23 DC Dextrose (Dextrose 50%) 25 ml ASDIRECTED PRN IV SEE LABEL COMMENTS 05/09/20 12:30 Estradiol (Estrace) 2 mg DAILY PO 05/11/20 09:00 05/13/20 07:55 Fentanyl Citrate (Sublimaze) 25 mcg Q5MP PRN IV PAIN LEVEL 5-10 05/09/20 11:45 05/09/20 12:45 DC Ferrous Sulfate (Ferrous Sulfate) 325 mg BID PO 05/12/20 09:00 05/13/20 07:53 Fluoxetine HCl (PROzac) 40 mg DAILY PO 05/09/20 09:00 05/13/20 07:56 Glucagon (Glucagon) 1 mg ASDIRECTED PRN SC SEE LABEL COMMENTS 05/09/20 12:00 UNV Glucagon (Glucagon) 1 mg ASDIRECTED PRN SC SEE LABEL COMMENTS 05/09/20 12:30 Glucose (Glucose) 16 GM ASDIRECTED PRN PO SEE LABEL COMMENTS 05/09/20 12:00 UNV Glucose (Glucose) 16 GM ASDIRECTED PRN PO SEE LABEL COMMENTS 05/09/20 12:30 Insulin Human Lispro (HumaLOG INSULIN) SEE PROTOCOL TABLE AC SC 05/09/20 12:00 05/12/20 12:24 Insulin Human Lispro (HumaLOG INSULIN) SEE PROTOCOL TABLE QHS SC 05/11/20 21:00 Ketorolac Tromethamine (ToRADol) 10 mg Q6HP PRN PO MODERATE PAIN (PS 5-7) 05/09/20 12:00 05/10/20 09:15 DC 05/09/20 17:23 Lactated Ringer's 1,000 ml @ 75 mls/hr [id number] IV 05/09/20 11:53 05/11/20 14:16 DC 05/11/20 03:40 Lactated Ringer's 1,000 ml @ 100 mls/hr Q10H IV 05/09/20 11:45 05/09/20 12:45 DC Medroxyprogesterone Acetate (Provera) 5 mg DAILY PO 05/09/20 09:00 05/13/20 07:55 Meperidine HCl (Demerol) 12.5 mg Q5MP PRN IV SHIVERING 05/09/20 11:45 05/09/20 12:45 DC Metoclopramide HCl (REGLAN INJection) 10 mg Q6HP PRN IV NAUSEA OR VOMITING 05/09/20 11:45 05/09/20 12:45 DC Miscellaneous (Unresolved Clarification Entry) SEE LABEL COMMENTS DAILY XX 05/09/20 09:00 05/09/20 07:14 DC Miscellaneous (Unresolved Clarification Entry) SEE LABEL COMMENTS DAILY XX 05/09/20 09:00 05/10/20 08:34 DC Miscellaneous (Unresolved Clarification Entry) SEE LABEL COMMENTS DAILY XX 05/10/20 09:00 05/10/20 09:15 DC Omeprazole (PriLOSEC) 40 mg DAILY PO 05/10/20 09:00 05/13/20 07:54 Ondansetron HCl (ZOFRAN INJection) 4 mg Q4H PRN IV NAUSEA OR VOMITING 05/09/20 12:00 05/12/20 21:31 Ondansetron HCl (ZOFRAN INJection) 4 mg Q4HP PRN IV NAUSEA OR VOMITING 05/09/20 11:45 05/09/20 12:45 DC Oxycodone HCl (Roxicodone, Oxyir) 5 mg ASDIRECTED PRN PO PAIN LEVEL 1-4 05/09/20 11:45 05/09/20 12:45 DC Oxycodone/ Acetaminophen (Percocet 5mg/ 325mg Tablet) 2 tab Q4HP PRN PO PAIN LEVEL 8-10 05/09/20 12:00 05/10/20 08:34 DC 05/09/20 20:20 Sitagliptin Phosphate (Januvia) 50 mg DAILY PO 05/09/20 09:00 05/11/20 10:33 DC 05/11/20 08:11 Tramadol HCl (Ultram) 50 mg Q4HP PRN PO MODERATE PAIN (PS 5-7) 05/10/20 08:45 05/10/20 18:04 Tramadol HCl (Ultram) 100 mg Q4HP PRN PO SEVERE PAIN (PS 8-10) 05/10/20 08:45 05/13/20 07:55 Allergies Coded Allergies: Penicillins (Verified Allergy, Mild, rash/hives, 05/09/20) morphine (Verified Allergy, Unknown, rash/fevers, 05/09/20) Objective Physical Examination Examination GENERAL APPEARANCE:Patient seen, laying in bed, awake, alert, and oriented. Comfortable, in no acute distress. SKIN: Warm and moist. LUNGS: Clear to auscultation bilaterally. No wheezing appreciated. HEART: No chest wall abnormalities. Regular rate and rhythm with no murmurs appreciated. ABDOMEN: Abdomen is soft, non-tender, non-distended. Incision intact. No palpable collections. Umbilicus viable. LILIA drains with serosanguinous, started to clot drainage. L 110/90, R 135/55 cc/24hr. EXTREMITIES: No edema identified. No calf tenderness. Vital Signs Vital Signs Date Time Temp Pulse Resp B/P (MAP) Pulse Ox O2 Delivery O2 Flow Rate FiO2 05/13/20 07:55 16 Room Air 05/13/20 06:00 98.2 88 120/80 (93) 94 05/09/20 21:00 2.0 I&Os I&O- Last 24 Hours up to 6 AM 05/13/20 05:59 Intake Total 950 ml Output Total 1490 ml Balance -540 ml Laboratory Data Labs 24H Laboratory Tests 2 05/12/20 11:32: Bedside Glucose (Misc Panel) 117H 05/12/20 15:38: Immature Granulocyte % (Auto) 0.4, Neutrophils (%) (Auto) 64.5, Lymphocytes (%) (Auto) 24.6, Monocytes (%) (Auto) 8.3H, Eosinophils (%) (Auto) 1.7, Basophils (%) (Auto) 0.5, Neutrophils # (Auto) 7.3, Lymphocytes # (Auto) 2.8, Monocytes # (Auto) 0.9H, Eosinophils # (Auto) 0.2, Basophils # (Auto) 0.1, Nucleated Red Blood Cells % (auto) 0.0 05/12/20 16:45: Bedside Glucose (Misc Panel) 96 05/12/20 20:07: Bedside Glucose (Misc Panel) 124H 05/12/20 20:53: Nucleated Red Blood Cells % (auto) 0.0 05/13/20 06:06: Nucleated Red Blood Cells % (auto) 0.0, Immature Granulocyte % (Auto) 0.4, Neutrophils (%) (Auto) 57.9, Lymphocytes (%) (Auto) 30.1, Monocytes (%) (Auto) 8.6H, Eosinophils (%) (Auto) 2.5, Basophils (%) (Auto) 0.5, Neutrophils # (Auto) 6.1, Lymphocytes # (Auto) 3.2, Monocytes # (Auto) 0.9H, Eosinophils # (Auto) 0.3, Basophils # (Auto) 0.1 05/13/20 07:46: Bedside Glucose (Misc Panel) 90 CBC/BMP Laboratory Tests 05/12/20 15:38 05/12/20 20:53 05/13/20 06:06 Impression S/p panniculectomy POD 4. Drain output still high, but started to decrease and coagulate. Will observe until midday for progress. Discussed with patient wash out and exploration of the incision under anesthesia today. Plan / VTE VTE Prophylaxis Ordered?: Yes SERA MOY DO May 13, 2020 09:37
--- NOTE | 2020-05-13 10:25 | IPNPDOC ---
Text Note Date of Service The patient was seen on 05/13/20. NOTE Subjective: Patient is a 44-year-old female who underwent panniculectomy (9.5 lbs pannus) by Dr. Levine on 05/09/20. The surgery itself went well, patient did experience some symptomatic anemia requiring transfusion of x2 PRBCs, but has otherwise been stable. Hospital services consulted for anemia and management of volume status. Patient was seen and examined at the bedside. Currently patient reports that she has had an uneventful evening denies any chest pain, short of breath, palpitations, nausea, vomiting, diarrhea, or urinary discomfort. Patient reports some abdominal discomfort. Objective: Vitals (See below) General: Sitting up in bed, appears to be comfortable, awake, alert and oriented 3 HEENT: NC, AT CVS: +S1S2 Lungs: Fair air entry b/l, auscultation is free of rhonchi, rales or wheezing Abdomen: Remains soft, obese, nondistended. Mild tenderness LILIA drains 4 - serosanguineous output noted Extremities: No evidence of edema, - Calf tenderness Assessment and plan: s/p Panniculectomy on 05/09 - LILIA drains in place; continues to have serosanguineous output - c/w tramadol as needed for pain - Dr. Levine following; plan for potential surgical intervention if output from LILIA drains does not subside Normocytic anemia - s/p 3 units PRBC - No evidence of maria r bleeding; output from LILIA drains remains serosanguineous - Hg stable NIDDM2 - A1c of 6.2% in 03/2020 - c/w ISS Depression / Anxiety - c/w Fluoxetine DLP - c/w Atorvastatin Surgically induced menopause - c/w Estradiol and Provera GERD - c/w Omeprazole DVT prophylaxis - As per surgery Disposition: - Possible surgical intervention today if the output from LILIA drains does not subside VS,Fishbone, I+O VS, Fishbone, I+O Laboratory Tests 05/12/20 15:38 05/12/20 20:53 05/13/20 06:06 Vital Signs Date Time Temp Pulse Resp B/P (MAP) Pulse Ox O2 Delivery O2 Flow Rate FiO2 05/13/20 08:25 16 Room Air 05/13/20 06:00 98.2 88 120/80 (93) 94 05/09/20 21:00 2.0 I&O- Last 24 Hours up to 6 AM 05/13/20 05:59 Intake Total 950 ml Output Total 1490 ml Balance -540 ml SHIRA SCHAFER MD May 13, 2020 10:25
[2020-05-13 14:00] VITALS: BP 119/80
[2020-05-13] MEDS ORDERED: THROMBIN SOLN 20,000 UNITS KIT As Ordered ONE (17:29)
[2020-05-13] MEDS ORDERED: ONDANSETRON 4MG/2ML VIAL As Ordered ONE ×2 (18:33→20:56)
[2020-05-13] MEDS ORDERED: fentaNYL 100 MCG/2 ML INJECTION (J3010) As Ordered ONE ×2 (18:33→18:54)
[2020-05-13] MEDS ORDERED: MIDAZOLAM INJ 2MG/2ML VIAL (J2250 PER 1MG) As Ordered ONE (18:33)
[2020-05-13] MEDS ORDERED: ACETAMINOPHEN 1000MG 100ML IV BTL (OFIRMEV) (J0131 PER 10MG) As Ordered ONE (18:33)
[2020-05-13] MEDS ORDERED: propofoL 200 MG/20 ML VIAL As Ordered ONE ×2 (18:33→19:59)
[2020-05-13] MEDS ORDERED: dexameTHASONE 4 MG/ML 1ML VIAL (J1100 PER 1MG) As Ordered ONE (18:33)
[2020-05-13] MEDS ORDERED: LIDOCAINE 2% 100MG/5ML SDV (FOR ANES.) As Ordered ONE (18:33)
--- NOTE | 2020-05-13 20:28 | POST-OPPD ---
Postoperative Procedure Note Date Of Procedure: May 13, 2020 PREOPERATIVE DIAGNOSIS: Lower abdominal incision hematoma, Panniculitis. POSTOPERATIVE DIAGNOSIS: same FINDINGS: small hematoma. No active bleeding. PROCEDURE: Irrigation and debridement lower abdominal incision, evacuation hematoma. SURGEON: Dr Moy ANESTHESIA: General SPECIMENS: hematoma ESTIMATED BLOOD LOSS: 50cc REPLACED: none DRAINS: 10 mm LILIA x 4 COMPLICATIONS: none POSTOPERATIVE CONDITION: stable [id number] SERA MOY DO May 13, 2020 20:28
[2020-05-13] MEDS ORDERED: oxyCODONE 5MG TAB As Ordered ONE (20:56)
[2020-05-13] MEDS ORDERED: oxyCODONE 5MG TAB PO PRN (21:00)
[2020-05-13] MEDS ORDERED: LR 1,000 ML IV SCH (21:00)
[2020-05-13] MEDS ORDERED: ONDANSETRON 4MG/2ML VIAL IV PRN (21:00)
[2020-05-13] MEDS ORDERED: HYDROMORPHONE HCL 0.5 MG/ 0.5 ML SYRINGE (J1170 PER 1) IV PRN (21:00)
[2020-05-13] MEDS ORDERED: fentaNYL 100 MCG/2 ML INJECTION (J3010) IV PRN (21:00)
[2020-05-13 21:40] VITALS: BP 123/70
[2020-05-13 22:10] VITALS: BP 123/79
[2020-05-13 23:10] VITALS: BP 129/78
[2020-05-14 00:10] VITALS: BP 110/70
[2020-05-14 01:10] VITALS: BP 111/73
[2020-05-14] MEDS: traMADol 50 MG TAB PO PRN ×4 (03:29→21:29)
[2020-05-14 06:00] VITALS: BP 124/88
[2020-05-14] MEDS: CLINDAMYCIN 150MG CAPSULE PO SCH ×3 (06:12→21:28)
[2020-05-14 06:45] LABS: BASO % 0.2 % (0.0-1.0); EOS % 0.1 % (0.0-3.0); HEMATOCRIT 29.8 % (36.0-47.0); HEMOGLOBIN 9.7 g/dl (12.0-15.5); LYMPH # 1.8 10^3/uL (1.5-5.0); LYMPH % 14.7 % (24.0-44.0); MEAN CORPUSCULAR HEMOGLOBIN 29.1 pg (27.0-33.0); MEAN CORPUSCULAR HGB CONC 32.6 g/dl (32.0-36.5); MEAN CORPUSCULAR VOLUME 89.5 fl (80.0-96.0); MONO # 1.2 10^3/uL (0.0-0.8); MONO % 9.6 % (0.0-5.0); NEUTROPHILS # 9.2 10^3/uL (1.5-8.5); NEUTROPHILS % 75.1 % (36.0-66.0); PLATELET COUNT, AUTOMATED 258 10^3/uL (150-450); RED BLOOD COUNT 3.33 10^6/uL (4.00-5.40); WHITE BLOOD COUNT 12.3 10^3/uL (4.0-10.0)
[2020-05-14] MEDS: HumaLOG INSULIN (NovoLOG) PER UNIT SC SCH ×4 (07:50→21:00)
[2020-05-14] MEDS: estradioL 1 MG TAB PO SCH (07:50)
[2020-05-14] MEDS: FERROUS SULFATE 325MG TAB PO SCH ×2 (07:50→21:27)
[2020-05-14] MEDS: medroxyPROGESTERone 5MG TABLET PO SCH (07:50)
[2020-05-14] MEDS: CYANOCOBALAMIN 500 MCG TAB PO SCH (07:50)
[2020-05-14] MEDS: FLUoxetine 20 MG CAP PO SCH (07:50)
[2020-05-14] MEDS: SITagliptin 50 MG TAB (JANUVIA) PO SCH (07:50)
[2020-05-14] MEDS: OMEPRAZOLE 20 MG CAP PO SCH (07:51)
[2020-05-14] MEDS: ATORVASTATIN 20 MG TAB PO SCH (07:51)
--- NOTE | 2020-05-14 09:48 | RO ---
OPERATIVE NOTE DATE OF OPERATION: 05/13/2020 PREOPERATIVE DIAGNOSIS: Low abdominal incision hematoma, panniculitis. POSTOPERATIVE DIAGNOSIS: Low abdominal incision hematoma, panniculitis. PROCEDURE: Irrigation and debridement, lower abdominal incision and evacuation of hematoma. ATTENDING SURGEON: Dena Levine DO ANESTHESIA: General. SPECIMENS: Hematoma. BLOOD LOSS: 50 mL; no replacement. DRAINS: Four 10 mm Josue-Ghosh drains. COMPLICATIONS: None. DESCRIPTION OF PROCEDURE: This is a 44-year-old female who had panniculectomy done on June 09. She had significant pannus removed; 9.5 pounds. She had prolonged oozing over the recovery period which required blood transfusion. Therefore, we opted to take her for operating room to explore the incision and irrigation and debridement, and evacuate possible hematoma. Risks, benefits and alternatives were discussed with the patient in detail and she is ready to proceed. We brought her into the operating room and placed in the supine position. She is on Clindamycin already. Compression stockings placed on the lower calves and general anesthesia was induced. We started by removing all the four drains and there were a few darryn throughout the incision that were also removed. She was prepped and draped in the usual sterile fashion. We opened the incision partially on the right. On the left side, a small amount of blood was identified. There is no active bleeding. The whole area was inspected and irrigated. There was no active bleeding anywhere. Her panniculectomy scar was completely clean. The flap was undermined until the umbilicus point where we also found remnants of the old clot but no active bleeding. Three liters of irrigation with normal saline was used and then all the debris of residual hematoma was evacuated. We used spray thrombin throughout the lateral portion of the incision and up until the umbilicus. Gelfoam was placed in the lateral pockets and left in place, and we used Tisseel throughout around the umbilical stump and also in the midline to the pubic bone. Again, the wound was reexamined. No active bleeding was noted and four drains were replaced; two in the gutters and two along the midline toward the umbilicus. The incisions were closed with 0 Vicryl sutures and 3-0 Monocryl sutures. Prineo dressing was applied as well as the new Xeroform gauze for the umbilicus which was completely viable and bulky dressing and a compression garment. The patient was extubated in the operating room without any difficulty and transferred to the recovery room in stable condition. ARTHUR
[2020-05-14 10:00] VITALS: BP 132/74
--- NOTE | 2020-05-14 10:24 | IPNPDOC ---
Text Note Date of Service The patient was seen on 05/14/20. NOTE Subjective: Patient is a 44-year-old female who underwent panniculectomy (9.5 lbs pannus) by Dr. Levine on 05/09/20. The surgery itself went well, patient did experience some symptomatic anemia requiring transfusion of x2 PRBCs, but has otherwise been stable. Hospital services consulted for anemia and management of volume status. Patient was seen and examined at the bedside. Currently patient reports that she has had an uneventful evening denies any chest pain, short of breath, palpitations, nausea, vomiting, diarrhea, or urinary discomfort. Patient reports some abdominal discomfort. Objective: Vitals (See below) General: Sitting up in bed, appears to be comfortable, awake, alert and oriented 3 HEENT: NC, AT CVS: +S1S2 Lungs: Fair air entry b/l, auscultation is free of rhonchi, rales or wheezing Abdomen: Remains soft, obese, nondistended. Mild tenderness LILIA drains 4 - serosanguineous output noted Extremities: No evidence of edema, - Calf tenderness Assessment and plan: s/p Panniculectomy on 05/09 - LILIA drains in place; continues to have serosanguineous output - c/w tramadol as needed for pain - Dr. Levine following - underwent revision 05/13/20 Normocytic anemia - s/p 3 units PRBC - No evidence of maria r bleeding; output from LILIA drains remains serosanguineous - Hg stable NIDDM2 - A1c of 6.2% in 03/2020 - c/w ISS Depression / Anxiety - c/w Fluoxetine DLP - c/w Atorvastatin Surgically induced menopause - c/w Estradiol and Provera GERD - c/w Omeprazole DVT prophylaxis - As per surgery Disposition: - follow up with surgery; anticipating discharge home in 24 hours - 05/15/20 VS,Fishbone, I+O VS, Fishbone, I+O Laboratory Tests 05/14/20 06:16 Vital Signs Date Time Temp Pulse Resp B/P (MAP) Pulse Ox O2 Delivery O2 Flow Rate FiO2 05/14/20 06:12 16 05/14/20 06:00 97.9 89 124/88 (100) 94 Room Air 05/14/20 01:10 2.0 I&O- Last 24 Hours up to 6 AM 05/14/20 06:00 Intake Total 1070 ml Output Total 2185 ml Balance -1115 ml DEONNA ROGEL MD May 14, 2020 10:24
[2020-05-14] MEDS ORDERED: MAALOX 30 ML SUSP *UDC PO ONE (15:30)
--- NOTE | 2020-05-14 15:59 | IPNPDOC ---
Subjective General Date Seen: May 14, 2020 Subject Chief Complaint/History The patient is a 44-year-old female admitted with a reason for visit of Panniculitis, Separation Of Muscle. S/p panniculectomy POD 5. S/p I/D and evacuation hematoma POD 1. Doing well today. Feeling well. Ambulating, pain controlled. No dizziness, SOB, abdominal pain. Current Medications Current Medications Current Medications Medications (Trade) Dose Ordered Sig/Diane Route PRN Reason Start Time Stop Time Status Last Admin Dose Admin Acetaminophen (Tylenol Tab) 650 mg Q6H PRN PO MILD PAIN (PS 1-4) 05/09/20 12:00 05/10/20 22:00 Atorvastatin Calcium (Lipitor) 40 mg DAILY PO 05/09/20 09:00 05/14/20 07:51 Clindamycin Phosphate 300 mg/ IV Miscellaneous Supplies 50 ml @ 100 mls/hr Q8H IV 05/10/20 11:00 05/12/20 10:15 DC 05/12/20 03:27 Clindamycin HCl (Cleocin) 300 mg Q8H PO 05/12/20 14:00 05/14/20 13:51 Cyanocobalamin (Vitamin B12) 1,000 mcg DAILY PO 05/14/20 09:00 05/14/20 07:50 Dextrose (Dextrose 50%) 25 ml ASDIRECTED PRN IV SEE LABEL COMMENTS 05/09/20 12:00 05/09/20 12:23 DC Dextrose (Dextrose 50%) 25 ml ASDIRECTED PRN IV SEE LABEL COMMENTS 05/09/20 12:30 Estradiol (Estrace) 2 mg DAILY PO 05/11/20 09:00 05/14/20 07:50 Fentanyl Citrate (Sublimaze) 25 mcg Q5MP PRN IV PAIN LEVEL 5-10 05/09/20 11:45 05/09/20 12:45 DC Fentanyl Citrate (Sublimaze) 25 mcg Q5MP PRN IV PAIN LEVEL 5-10 05/13/20 21:00 05/13/20 22:00 DC Ferrous Sulfate (Ferrous Sulfate) 325 mg BID PO 05/12/20 09:00 05/14/20 07:50 Fluoxetine HCl (PROzac) 40 mg DAILY PO 05/09/20 09:00 05/14/20 07:50 Glucagon (Glucagon) 1 mg ASDIRECTED PRN SC SEE LABEL COMMENTS 05/09/20 12:00 UNV Glucagon (Glucagon) 1 mg ASDIRECTED PRN SC SEE LABEL COMMENTS 05/09/20 12:30 Glucose (Glucose) 16 GM ASDIRECTED PRN PO SEE LABEL COMMENTS 05/09/20 12:00 UNV Glucose (Glucose) 16 GM ASDIRECTED PRN PO SEE LABEL COMMENTS 05/09/20 12:30 Hydromorphone HCl (Dilaudid) 0.2 mg Q5MP PRN IV PAIN LEVEL 4-7 05/13/20 21:00 05/13/20 22:00 DC Insulin Human Lispro (HumaLOG INSULIN) SEE PROTOCOL TABLE AC SC 05/09/20 12:00 05/14/20 07:50 Insulin Human Lispro (HumaLOG INSULIN) SEE PROTOCOL TABLE QHS SC 05/11/20 21:00 Ketorolac Tromethamine (ToRADol) 10 mg Q6HP PRN PO MODERATE PAIN (PS 5-7) 05/09/20 12:00 05/10/20 09:15 DC 05/09/20 17:23 Lactated Ringer's 1,000 ml @ 75 mls/hr [id number] IV 05/09/20 11:53 05/11/20 14:16 DC 05/11/20 03:40 Lactated Ringer's 1,000 ml @ 100 mls/hr Q10H IV 05/09/20 11:45 05/09/20 12:45 DC Lactated Ringer's 1,000 ml @ 100 mls/hr Q10H IV 05/13/20 21:00 05/13/20 22:00 DC 05/13/20 22:33 Medroxyprogesterone Acetate (Provera) 5 mg DAILY PO 05/09/20 09:00 05/14/20 07:50 Meperidine HCl (Demerol) 12.5 mg Q5MP PRN IV SHIVERING 05/09/20 11:45 05/09/20 12:45 DC Metoclopramide HCl (REGLAN INJection) 10 mg Q6HP PRN IV NAUSEA OR VOMITING 05/09/20 11:45 05/09/20 12:45 DC Miscellaneous (Unresolved Clarification Entry) SEE LABEL COMMENTS DAILY XX 05/09/20 09:00 05/09/20 07:14 DC Miscellaneous (Unresolved Clarification Entry) SEE LABEL COMMENTS DAILY XX 05/09/20 09:00 05/10/20 08:34 DC Miscellaneous (Unresolved Clarification Entry) SEE LABEL COMMENTS DAILY XX 05/10/20 09:00 05/10/20 09:15 DC Omeprazole (PriLOSEC) 40 mg DAILY PO 05/10/20 09:00 05/14/20 07:51 Ondansetron HCl (ZOFRAN INJection) 4 mg Q4H PRN IV NAUSEA OR VOMITING 05/09/20 12:00 05/12/20 21:31 Ondansetron HCl (ZOFRAN INJection) 4 mg Q4HP PRN IV NAUSEA OR VOMITING 05/09/20 11:45 05/09/20 12:45 DC Ondansetron HCl (ZOFRAN INJection) 4 mg Q4HP PRN IV NAUSEA OR VOMITING 05/13/20 21:00 05/13/20 22:00 DC 05/13/20 21:00 Oxycodone HCl (Roxicodone, Oxyir) 5 mg ASDIRECTED PRN PO PAIN LEVEL 1-4 05/09/20 11:45 05/09/20 12:45 DC Oxycodone HCl (Roxicodone, Oxyir) 5 mg ASDIRECTED PRN PO PAIN LEVEL 1-4 05/13/20 21:00 05/13/20 22:00 DC 05/13/20 21:02 Oxycodone/ Acetaminophen (Percocet 5mg/ 325mg Tablet) 2 tab Q4HP PRN PO PAIN LEVEL 8-10 05/09/20 12:00 05/10/20 08:34 DC 05/09/20 20:20 Sitagliptin Phosphate (Januvia) 50 mg DAILY PO 05/09/20 09:00 05/11/20 10:33 DC 05/11/20 08:11 Sitagliptin Phosphate (Januvia) 50 mg DAILY PO 05/14/20 09:00 05/14/20 07:50 Tramadol HCl (Ultram) 50 mg Q4HP PRN PO MODERATE PAIN (PS 5-7) 05/10/20 08:45 05/10/20 18:04 Tramadol HCl (Ultram) 100 mg Q4HP PRN PO SEVERE PAIN (PS 8-10) 05/10/20 08:45 05/14/20 11:29 Allergies Coded Allergies: Penicillins (Verified Allergy, Mild, rash/hives, 05/09/20) morphine (Verified Allergy, Unknown, rash/fevers, 05/09/20) Objective Physical Examination Examination GENERAL APPEARANCE:Patient seen, laying in bed, awake, alert, and oriented. Comfortable, in no acute distress. SKIN: Warm and moist. LUNGS: Clear to auscultation bilaterally. No wheezing appreciated. HEART: No chest wall abnormalities. Regular rate and rhythm with no murmurs appreciated. ABDOMEN: Abdomen is soft, non-tender, non-distended. Incision intact. Umbilicus viable. LILIA drains with diluted serosanguinous drainage 95/90/95/70 cc/24hr each drain. EXTREMITIES: No edema identified. No calf tenderness. Vital Signs Vital Signs Date Time Temp Pulse Resp B/P (MAP) Pulse Ox O2 Delivery O2 Flow Rate FiO2 05/14/20 11:59 20 05/14/20 10:00 97.8 79 132/74 (93) 96 Room Air 05/14/20 01:10 2.0 I&Os I&O- Last 24 Hours up to 6 AM 05/14/20 06:00 Intake Total 1070 ml Output Total 2185 ml Balance -1115 ml Laboratory Data Labs 24H Laboratory Tests 2 05/13/20 22:23: Bedside Glucose (Misc Panel) 150H 05/14/20 06:06: Bedside Glucose (Misc Panel) 122H 05/14/20 06:16: Immature Granulocyte % (Auto) 0.3, Neutrophils (%) (Auto) 75.1H, Lymphocytes (%) (Auto) 14.7L, Monocytes (%) (Auto) 9.6H, Eosinophils (%) (Auto) 0.1, Basophils (%) (Auto) 0.2, Neutrophils # (Auto) 9.2H, Lymphocytes # (Auto) 1.8, Monocytes # (Auto) 1.2H, Eosinophils # (Auto) 0.0, Basophils # (Auto) 0.0, Nucleated Red Blood Cells % (auto) 0.0 05/14/20 11:26: Bedside Glucose (Misc Panel) 111H CBC/BMP Laboratory Tests 05/14/20 06:16 Impression S/p panniculectomy POD 5. Doing well. Pain controlled. No evidence of bleeding. LILIA output consistent with extensive irrigation. Continue with compression. Ambulate. D/c planning for tomorrow. Plan / VTE VTE Prophylaxis Ordered?: Yes SERA MOY DO May 14, 2020 15:58
[2020-05-14] MEDS ORDERED: CALCIUM CARBONATE 500 MG CHEW U/D PO PRN (17:15)
[2020-05-14 17:36] VITALS: BP 135/77
[2020-05-14 22:00] VITALS: BP 122/86
[2020-05-15] MEDS: CLINDAMYCIN 150MG CAPSULE PO SCH (05:04)
[2020-05-15 06:00] VITALS: BP 94/54
[2020-05-15] MEDS: HumaLOG INSULIN (NovoLOG) PER UNIT SC SCH (07:30)
[2020-05-15] MEDS: medroxyPROGESTERone 5MG TABLET PO SCH (08:19)
[2020-05-15] MEDS: SITagliptin 50 MG TAB (JANUVIA) PO SCH (08:20)
[2020-05-15] MEDS: ATORVASTATIN 20 MG TAB PO SCH (08:20)
[2020-05-15] MEDS: estradioL 1 MG TAB PO SCH (08:20)
[2020-05-15] MEDS: CYANOCOBALAMIN 500 MCG TAB PO SCH (08:20)
[2020-05-15] MEDS: FERROUS SULFATE 325MG TAB PO SCH (08:20)
[2020-05-15] MEDS: OMEPRAZOLE 20 MG CAP PO SCH (08:20)
[2020-05-15] MEDS: FLUoxetine 20 MG CAP PO SCH (08:21)
[2020-05-15] MEDS ORDERED: TRAM50TA2 PO ×2 (09:10→10:46)
[2020-05-15 09:30] LABS: HEMATOCRIT 28.9 % (36.0-47.0); HEMOGLOBIN 9.2 g/dl (12.0-15.5); MEAN CORPUSCULAR HEMOGLOBIN 28.8 pg (27.0-33.0); MEAN CORPUSCULAR HGB CONC 31.8 g/dl (32.0-36.5); MEAN CORPUSCULAR VOLUME 90.6 fl (80.0-96.0); PLATELET COUNT, AUTOMATED 284 10^3/uL (150-450); RED BLOOD COUNT 3.19 10^6/uL (4.00-5.40); WHITE BLOOD COUNT 13.6 10^3/uL (4.0-10.0)
[2020-05-15] MEDS: traMADol 50 MG TAB PO PRN (10:10)
--- NOTE | 2020-05-15 11:16 | IPNPDOC ---
Subjective General Date Seen: May 15, 2020 Subject Chief Complaint/History The patient is a 44-year-old female admitted with a reason for visit of Panniculitis, Separation Of Muscle. Patient is s/p panniculectomy POD 6. Feeling well today. Ambulating, tolerating regular diet, pain control. Collar off LILIA drains lightening up. Current Medications Current Medications Current Medications Medications (Trade) Dose Ordered Sig/Diane Route PRN Reason Start Time Stop Time Status Last Admin Dose Admin Acetaminophen (Tylenol Tab) 650 mg Q6H PRN PO MILD PAIN (PS 1-4) 05/09/20 12:00 05/10/20 22:00 Atorvastatin Calcium (Lipitor) 40 mg DAILY PO 05/09/20 09:00 05/15/20 08:20 Calcium Carbonate (Tums) 1,000 mg TIDP PRN PO heartburn 05/14/20 17:15 05/14/20 21:28 Clindamycin Phosphate 300 mg/ IV Miscellaneous Supplies 50 ml @ 100 mls/hr Q8H IV 05/10/20 11:00 05/12/20 10:15 DC 05/12/20 03:27 Clindamycin HCl (Cleocin) 300 mg Q8H PO 05/12/20 14:00 05/14/20 13:51 Cyanocobalamin (Vitamin B12) 1,000 mcg DAILY PO 05/14/20 09:00 05/15/20 08:20 Dextrose (Dextrose 50%) 25 ml ASDIRECTED PRN IV SEE LABEL COMMENTS 05/09/20 12:00 05/09/20 12:23 DC Dextrose (Dextrose 50%) 25 ml ASDIRECTED PRN IV SEE LABEL COMMENTS 05/09/20 12:30 Estradiol (Estrace) 2 mg DAILY PO 05/11/20 09:00 05/15/20 08:20 Fentanyl Citrate (Sublimaze) 25 mcg Q5MP PRN IV PAIN LEVEL 5-10 05/09/20 11:45 05/09/20 12:45 DC Fentanyl Citrate (Sublimaze) 25 mcg Q5MP PRN IV PAIN LEVEL 5-10 05/13/20 21:00 05/13/20 22:00 DC Ferrous Sulfate (Ferrous Sulfate) 325 mg BID PO 05/12/20 09:00 05/15/20 08:20 Fluoxetine HCl (PROzac) 40 mg DAILY PO 05/09/20 09:00 05/15/20 08:21 Glucagon (Glucagon) 1 mg ASDIRECTED PRN SC SEE LABEL COMMENTS 05/09/20 12:00 UNV Glucagon (Glucagon) 1 mg ASDIRECTED PRN SC SEE LABEL COMMENTS 05/09/20 12:30 Glucose (Glucose) 16 GM ASDIRECTED PRN PO SEE LABEL COMMENTS 05/09/20 12:00 UNV Glucose (Glucose) 16 GM ASDIRECTED PRN PO SEE LABEL COMMENTS 05/09/20 12:30 Hydromorphone HCl (Dilaudid) 0.2 mg Q5MP PRN IV PAIN LEVEL 4-7 05/13/20 21:00 05/13/20 22:00 DC Insulin Human Lispro (HumaLOG INSULIN) SEE PROTOCOL TABLE AC SC 05/09/20 12:00 05/14/20 07:50 Insulin Human Lispro (HumaLOG INSULIN) SEE PROTOCOL TABLE QHS SC 05/11/20 21:00 Ketorolac Tromethamine (ToRADol) 10 mg Q6HP PRN PO MODERATE PAIN (PS 5-7) 05/09/20 12:00 05/10/20 09:15 DC 05/09/20 17:23 Lactated Ringer's 1,000 ml @ 75 mls/hr [id number] IV 05/09/20 11:53 05/11/20 14:16 DC 05/11/20 03:40 Lactated Ringer's 1,000 ml @ 100 mls/hr Q10H IV 05/09/20 11:45 05/09/20 12:45 DC Lactated Ringer's 1,000 ml @ 100 mls/hr Q10H IV 05/13/20 21:00 05/13/20 22:00 DC 05/13/20 22:33 Medroxyprogesterone Acetate (Provera) 5 mg DAILY PO 05/09/20 09:00 05/15/20 08:19 Meperidine HCl (Demerol) 12.5 mg Q5MP PRN IV SHIVERING 05/09/20 11:45 05/09/20 12:45 DC Metoclopramide HCl (REGLAN INJection) 10 mg Q6HP PRN IV NAUSEA OR VOMITING 05/09/20 11:45 05/09/20 12:45 DC Miscellaneous (Unresolved Clarification Entry) SEE LABEL COMMENTS DAILY XX 05/09/20 09:00 05/09/20 07:14 DC Miscellaneous (Unresolved Clarification Entry) SEE LABEL COMMENTS DAILY XX 05/09/20 09:00 05/10/20 08:34 DC Miscellaneous (Unresolved Clarification Entry) SEE LABEL COMMENTS DAILY XX 05/10/20 09:00 05/10/20 09:15 DC Omeprazole (PriLOSEC) 40 mg DAILY PO 05/10/20 09:00 05/15/20 08:20 Ondansetron HCl (ZOFRAN INJection) 4 mg Q4H PRN IV NAUSEA OR VOMITING 05/09/20 12:00 05/12/20 21:31 Ondansetron HCl (ZOFRAN INJection) 4 mg Q4HP PRN IV NAUSEA OR VOMITING 05/09/20 11:45 05/09/20 12:45 DC Ondansetron HCl (ZOFRAN INJection) 4 mg Q4HP PRN IV NAUSEA OR VOMITING 05/13/20 21:00 05/13/20 22:00 DC 05/13/20 21:00 Oxycodone HCl (Roxicodone, Oxyir) 5 mg ASDIRECTED PRN PO PAIN LEVEL 1-4 05/09/20 11:45 05/09/20 12:45 DC Oxycodone HCl (Roxicodone, Oxyir) 5 mg ASDIRECTED PRN PO PAIN LEVEL 1-4 05/13/20 21:00 05/13/20 22:00 DC 05/13/20 21:02 Oxycodone/ Acetaminophen (Percocet 5mg/ 325mg Tablet) 2 tab Q4HP PRN PO PAIN LEVEL 8-10 05/09/20 12:00 05/10/20 08:34 DC 05/09/20 20:20 Sitagliptin Phosphate (Januvia) 50 mg DAILY PO 05/09/20 09:00 05/11/20 10:33 DC 05/11/20 08:11 Sitagliptin Phosphate (Januvia) 50 mg DAILY PO 05/14/20 09:00 05/15/20 08:20 Tramadol HCl (Ultram) 50 mg Q4HP PRN PO MODERATE PAIN (PS 5-7) 05/10/20 08:45 05/10/20 18:04 Tramadol HCl (Ultram) 100 mg Q4HP PRN PO SEVERE PAIN (PS 8-10) 05/10/20 08:45 05/15/20 10:10 Allergies Coded Allergies: Penicillins (Verified Allergy, Mild, rash/hives, 05/09/20) morphine (Verified Allergy, Unknown, rash/fevers, 05/09/20) Objective Physical Examination Examination GENERAL APPEARANCE:Patient seen, laying in bed, awake, alert, and oriented. Comfortable, in no acute distress. SKIN: Warm and moist. LUNGS: Clear to auscultation bilaterally. No wheezing appreciated. HEART: No chest wall abnormalities. Regular rate and rhythm with no murmurs appreciated. ABDOMEN: Abdomen is soft, non-tender, non-distended. Incision intact. Umbilicus viable. LILIA drains with serosanguinous drainage. 115/130/125/80 cc/24hr each drain. EXTREMITIES: No edema identified. No calf tenderness. Vital Signs Vital Signs Date Time Temp Pulse Resp B/P (MAP) Pulse Ox O2 Delivery O2 Flow Rate FiO2 05/15/20 10:10 18 Room Air 05/15/20 06:00 98.2 85 94/54 (67) 95 05/14/20 01:10 2.0 I&Os I&O- Last 24 Hours up to 6 AM 05/15/20 05:59 Intake Total 2240 ml Output Total 545 ml Balance 1695 ml Laboratory Data Labs 24H Laboratory Tests 2 05/14/20 11:26: Bedside Glucose (Misc Panel) 111H 05/14/20 17:02: Bedside Glucose (Misc Panel) 127H 05/14/20 20:01: Bedside Glucose (Misc Panel) 133H 05/15/20 05:58: Bedside Glucose (Misc Panel) 112H 05/15/20 09:03: Nucleated Red Blood Cells % (auto) 0.0 CBC/BMP Laboratory Tests 05/15/20 09:03 Impression S/p panniculectomy POD 6. S/p Irrigation and debridement with evacuation small hematoma POD 2. No active bleeding. Stable for discharge H/H stable. Teaching for drain monitoring done. Pain controlled Continue with Iron for 30 days. F/up with Plastic surgery Wednesday 2;30 pm Plan / VTE VTE Prophylaxis Ordered?: Yes SERA MOY DO May 15, 2020 11:16
--- NOTE | 2020-05-15 13:59 | DS.PDOC ---
Discharge Summary General Date of Admission May 11, 2020 at 10:05 Date of Discharge 05/15/20 Discharge Summary PROCEDURES PERFORMED DURING STAY: Panniculectomy ADMITTING DIAGNOSES: 1. Panniculitis SECONDARY DIAGNOSES: #Type 2 diabetes #Depression/anxiety #Dyslipidemia #Vitamin D deficiency #GERD #Surgically induced menopause #Morbid obesity PAST SURGICAL HISTORY: #Cholecystectomy (1998) #Tonsillectomy (2002) #Abdominal hysterectomy (2005) #Tubal ligation 2004 #Right carpal tunnel surgery 2012 #Left carpal tunnel and left elbow 2013 #Gastric bypass 11/2017 #Lump removed from back 04/2018 #Panniculectomy 04/2020 COMPLICATIONS/CHIEF COMPLAINT: Panniculitis, Separation Of Muscle. HISTORY OF PRESENT ILLNESS: Patient is a 44-year-old female who had a panniculectomy (9.5 lbs pannus) by Dr. Levine on 05/09/20. The surgery itself went well, patient did experience some symptomatic anemia requiring transfusion of x2 PRBCs, but has otherwise been stable. Dr. Levine reached out to the hospitalist service as she is concerned that the patient has had 6 L of fluid with only 2 L of urine output in the last 48 hours. She is asking that we take over as primary to look into possible fluid overload. Patient states that she is been feeling well with only some transient dizziness on post op day 1. She otherwise is doing well the past 48 hours and has had no fevers, chills, chest pain, shortness of breath, lower extremity swelling, or abdominal swelling. She does admit to some abdominal discomfort but states that it is under control. HOSPITAL COURSE: Patient seen in consultation by plastic surgery, underwent panniculectomy, with 4 LILIA drains placed. Followed by plastic surgery daily, with recommendations for discharge and outpatient follow up. s/p Panniculectomy on 05/09 - LILIA drains in place; continues to have serosanguineous output - c/w tramadol as needed for pain - Dr. Levine following - underwent revision 05/13/20 Normocytic anemia - s/p 3 units PRBC - No evidence of maria r bleeding; output from LILIA drains remains serosanguineous - Hg stable NIDDM2 - A1c of 6.2% in 03/2020 - c/w ISS Depression / Anxiety - c/w Fluoxetine DLP - c/w Atorvastatin Surgically induced menopause - c/w Estradiol and Provera GERD - c/w Omeprazole DISCHARGE MEDICATIONS: Please see below. ALLERGIES: Please see below. PHYSICAL EXAMINATION ON DISCHARGE: Vitals (See below) General: Sitting up in bed, appears to be comfortable, awake, alert and oriented 3 HEENT: NC, AT CVS: +S1S2 Lungs: Fair air entry b/l, auscultation is free of rhonchi, rales or wheezing Abdomen: Remains soft, obese, nondistended. Mild tenderness LILIA drains 4 - serosanguineous output noted Extremities: No evidence of edema, - Calf tenderness LABORATORY DATA: Please see below. ACTIVITY: [As tolerated]. DISPOSITION: Home, Self-Care. DISCHARGE INSTRUCTIONS: 1. Follow up with plastic surgery as scheduled. 2. Follow up with PCP in 3-5 days. DISCHARGE CONDITION: [Stable]. TIME SPENT ON DISCHARGE: 35 minutes. Vital Signs/I&Os Vital Signs Date Time Temp Pulse Resp B/P (MAP) Pulse Ox O2 Delivery O2 Flow Rate FiO2 05/15/20 10:40 20 05/15/20 10:10 Room Air 05/15/20 06:00 98.2 85 94/54 (67) 95 05/14/20 01:10 2.0 I&O- Last 24 Hours up to 6 AM 05/15/20 06:00 Intake Total 2240 ml Output Total 545 ml Balance 1695 ml Laboratory Data Labs 24H Laboratory Tests 2 05/14/20 17:02: Bedside Glucose (Misc Panel) 127H 05/14/20 20:01: Bedside Glucose (Misc Panel) 133H 05/15/20 05:58: Bedside Glucose (Misc Panel) 112H 05/15/20 09:03: Nucleated Red Blood Cells % (auto) 0.0 CBC/BMP Laboratory Tests 05/15/20 09:03 FSBS Laboratory Tests Test 05/14/20 17:02 05/14/20 20:01 05/15/20 05:58 Range/Units Bedside Glucose (Misc Panel) 127 133 112 70-105 MG/DL Discharge Medications Scheduled Atorvastatin Calcium (Atorvastatin Calcium) 40 Mg Tablet, 40 MG PO DAILY, (Reported) Cyanocobalamin (Vitamin B-12) (Vitamin B12) 2,500 Mcg Tablet, 1,000 MCG PO DAILY, (Reported) Ergocalciferol (Vitamin D2) (Vitamin D2) 50,000 Units Cap, 50,000 MG PO QWEEK, (Reported) Estradiol (Estradiol) 2 Mg Tablet, 2 MG PO DAILY, (Reported) Ferrous Sulfate (Ferrous Sulfate) 325 Mg Tablet.dr, 1 TAB PO BID Fluoxetine Hcl (Fluoxetine HCl) 40 Mg Capsule, 40 MG PO DAILY, (Reported) Medroxyprogesterone Acetate (Medroxyprogesterone Acetate) 5 Mg Tablet, 5 MG PO DAILY, (Reported) Omeprazole (Omeprazole) 40 Mg Capsule.dr, 40 MG PO DAILY, (Reported) Sitagliptin (Januvia) 50 Mg Tablet, 50 MG PO DAILY, (Reported) Scheduled PRN Tramadol HCl (Tramadol HCl) 50 Mg Tablet, 50 MG PO Q6HP PRN for MODERATE PAIN (PS 5-7) Allergies Coded Allergies: Penicillins (Verified Allergy, Mild, rash/hives, 05/09/20) morphine (Verified Allergy, Unknown, rash/fevers, 05/09/20) DEONNA ROGEL MD May 15, 2020 13:59
== END 2020-05-15 11:05 | disposition home or self-care (01) | DRG 902 ==
LOC: M SDC 06:00 → M MS5PR 13:20 → M SDC 05-11 10:05 → M MS5PR 05-11 10:05
PROVIDERS: ADMIT Internal Medicine; ATTEND Internal Medicine
PROC: 0J080ZZ Alteration of Abdomen Subcutaneous Tissue and Fascia, Open Approach (ICD-10-PCS; 2020-05-09)
PROC: 0JB80ZZ Excision of Abdomen Subcutaneous Tissue and Fascia, Open Approach (ICD-10-PCS; principal; 2020-05-09 07:30)
PROC: 30233N1 Transfusion of Nonautologous Red Blood Cells into Peripheral Vein, Percutaneous Approach (ICD-10-PCS; 2020-05-10)
PROC: 0JC80ZZ Extirpation of Matter from Abdomen Subcutaneous Tissue and Fascia, Open Approach (ICD-10-PCS; 2020-05-13)
DX: L76.31 Postprocedural hematoma of skin and subcutaneous tissue following a dermatologic procedure (principal); Z68.42 Body mass index [BMI] 45.0-49.9, adult; D64.9 Anemia, unspecified; M79.3 Panniculitis, unspecified; M62.08 Separation of muscle (nontraumatic), other site; E11.9 Type 2 diabetes mellitus without complications; F41.9 Anxiety disorder, unspecified; F32.9 Major depressive disorder, single episode, unspecified; E55.9 Vitamin D deficiency, unspecified; K21.9 Gastro-esophageal reflux disease without esophagitis; E66.01 Morbid (severe) obesity due to excess calories; E78.5 Hyperlipidemia, unspecified; Z79.899 Other long term (current) drug therapy; Z88.0 Allergy status to penicillin; Z88.5 Allergy status to narcotic agent

== ENCOUNTER → 2021-03-26 | Outpatient (REF) | payer MEDICARE, MEDICAID ==
[~2021-03-26] MED LIST changes: +CLIN150C17 PO; +ERGO500029 PO; -ESTR2TAB2 PO; +ESTR2TAB3 PO; +FERR325T3 PO; -HEPARIN SOD (PORCINE) 5000UNITS/ML 1ML VIAL/SYRINGE SQ ONE; -LR 1,000 ML IV ONE; +TRAM50TA2 PO; -VITA50005 PO
== END ==
LOC: M SFHCCLAY 14:38
PROVIDERS: ATTEND Family Medicine
DX: K21.9 Gastro-esophageal reflux disease without esophagitis (principal); I10 Essential (primary) hypertension

== ENCOUNTER 2021-04-08 07:26 | Observation (INO) | payer MEDICARE, MEDICAID ==
[2021-04-08] VITALS (7 sets, daily range): BP systolic 117–147; BP diastolic 69–84
[~2021-04-08] VITALS: Ht 170.2 cm; Wt 106.1 kg
[~2021-04-08 07:26] MED LIST changes: +CLINDAMYCIN 600 MG in IV 1 EA IV ONE; +HEPARIN SOD (PORCINE) 5000UNITS/ML 1ML VIAL/SYRINGE SQ ONE; +LR 1,000 ML IV ONE; +SCOPOLAMINE 1MG TRANSDERMAL PATCH TOP ONE
[2021-04-08] MEDS ORDERED: fentaNYL 250 MCG/5 ML INJECTION (J3010) As Ordered ONE (08:20)
[2021-04-08] MEDS ORDERED: propofoL 200 MG/20 ML VIAL As Ordered ONE (08:20)
[2021-04-08] MEDS ORDERED: ROCURONIUM BROMIDE 50 MG/5 ML VIAL As Ordered ONE ×3 (08:20→13:12)
[2021-04-08] MEDS ORDERED: ONDANSETRON 4MG/2ML VIAL As Ordered ONE (08:20)
[2021-04-08] MEDS ORDERED: LIDOCAINE 2% 100MG/5ML SDV (FOR ANES.) As Ordered ONE (08:20)
[2021-04-08] MEDS ORDERED: dexameTHASONE 4 MG/ML 1ML VIAL (J1100 PER 1MG) As Ordered ONE (08:20)
[2021-04-08] MEDS ORDERED: MIDAZOLAM INJ 2MG/2ML VIAL (J2250 PER 1MG) As Ordered ONE (08:20)
[2021-04-08] MEDS ORDERED: LACRILUBE (AKWA TEARS) OPHTH OINT 3.5 GM As Ordered ONE (08:29)
[2021-04-08] MEDS ORDERED: LIDOCAINE 1% MDV 20ML VIAL As Ordered ONE (09:42)
[2021-04-08] MEDS ORDERED: EPINEPHrine 1MG/ML INJ 30ML MD-VIAL As Ordered ONE ×2 (09:42→09:44)
[2021-04-08] MEDS ORDERED: BUPIVACAINE LIPOSOME/PF 1.3% 20ML VIAL (13.3MG/ML)(EXPAREL)(C9290 PER1MG) As Ordered ONE (09:43)
[2021-04-08] MEDS ORDERED: GENTAMICIN SULF 80MG/2ML VIAL As Ordered ONE (09:43)
[2021-04-08] MEDS ORDERED: GLYCOPYRROLATE INJ 0.2 MG/ML 2 ML VIAL As Ordered ONE (10:55)
[2021-04-08] MEDS ORDERED: ACETAMINOPHEN 1000MG 100ML IV BTL (OFIRMEV) (J0131 PER 10MG) As Ordered ONE (11:14)
[2021-04-08] MEDS ORDERED: SUGAMMADEX SODIUM 500 MG/5 ML VIAL (BRIDION) As Ordered ONE (11:14)
[2021-04-08] MEDS ORDERED: HYDROmorphone HCL 2 MG/ML 1ML VIAL As Ordered ONE (11:14)
[2021-04-08] MEDS ORDERED: METOCLOPRAMIDE INJ 10MG/2ML VIAL (J2765 PER 1) As Ordered ONE (11:14)
[2021-04-08] MEDS ORDERED: CLINDAMYCIN 600 MG/50 ML PREMIX BAG As Ordered ONE (12:57)
--- NOTE | 2021-04-08 14:37 | ROOPDOC ---
[facility] Report Of Operation Report of Operation DATE OF PROCEDURE: 04/08/21 PREOPERATIVE DIAGNOSIS: Bilateral breast hypertrophy. POSTOPERATIVE DIAGNOSIS: same PROCEDURE: Bilateral breast reduction SURGEON: Dr Moy ANESTHESIA: General ESTIMATED BLOOD LOSS: 100 cc FINDINGS: Large breasts SPECIMENS: Right breast 927 gm, Left breast 919 gm COMPLICATIONS: none REPLACED: none DRAINS: 10 mm LILIA x 4 POSTOPERATIVE CONDITION: stable DESCRIPTION OF PROCEDURE: This is a 45-year-old female who upper back and neck pain worsened by large breasts. Patient status post gastric bypass with significant weight loss, however upper back pain is not completely reduced. She has markedly large breast with significant ptosis which added to the problem. She is scheduled for bilateral breast reduction. Risks, benefits, and alternatives were discussed with the patient in detail, and she is ready to proceed. The day of surgery, she was marked in the upright position and informed consent was obtained. She measures 39 cm from sternal notch to nipple on the Right and 39 cm on the Left, IMF at 25 cm bilaterally. Patient also has significant extension of redundant tissue into the lateral chest bilaterally. She was marked according superior medial pedicle breast reduction pattern. She was brought into the operating room and placed in the supine position. Preoperative antibiotics and 5000 units heparin subcutaneous were given. Sequential pneumatic stocking were placed on the lower calves. General anesthesia was induced. She was prepped and draped in the usual sterile fashion. We started our procedure on the right side. Her nipple areolar complex was outlined 45 mm in diameter. We started our incision by scoring the nipple areolar complex area, and then dissection was continued using electrocautery and PEEK cautery until the inferior lateral portion of the breast was resected. Hemostasis was obtained using electrocautery. The pedicle was de-epithelialized using Mcghee scissors, good perfusion to the nipple at all times. We used Exparel 6 cc for local anesthesia to infiltrate in the Pectoralis muscle as well as the breast tissue. [place] Tisseel coagulation agent applied, 1 ml. Than, pedicle was turned superior to its new location at 25 cm from sternal notch. The mound was re-created using conforming 0 Vicryl sutures. Pillars were closed with interrupted 3-0 Monocryl sutures and 3-0 Monocryl V-Loc suture. The vertical limb was 9.5 cm. 200 cc of tumescent solution was infiltrated into the lateral chest area where the skin redundancy is thicker. Vaser liposuction was performed for 2 minutes to loosen the area. Suction assisted lipectomy then done in the lateral chest area evacuating 200 cc of liposuction fluid. Excess tissue inferiorly was measured and resected, creating the horizontal scar. Horizontal scar was closed with interrupted 3-0 Monocryl sutures as well as 3-0 Monocryl V-Loc suture. Nipple area complex was brought into view through the new opening and sutured in place with 3-0 and 4-0 Monocryl sutures and a 5-0 plain gut sutures. Two 10 mm Josue-Ghosh drains was placed through the lateral portion of the horizontal incision. and secured in place with 3-0 Monocryl suture. Then we turned our attention to the left side. Her nipple areolar complex was outlined 45 mm in diameter. We started our incision by scoring the nipple areolar complex area, and then dissection was continued using electrocautery and PEEK cautery until the inferior lateral portion of the breast was resected. Hemostasis was obtained using electrocautery. The pedicle was de-epithelialized using Mcghee scissors, good perfusion to the nipple at all times. We used Exparel 6 cc for local anesthesia to infiltrate in the Pectoralis muscle as well as the breast tissue. [place] Tisseel coagulation agent applied, 1 ml. Than, pedicle was turned superior to its new location at 25 cm from sternal notch. The mound was re-created using conforming 0 Vicryl sutures. Pillars were closed with interrupted 3-0 Monocryl sutures and 3-0 Monocryl V-Loc suture. The vertical limb was 9.5 cm. 200 cc of tumescent solution was infiltrated into the lateral chest area where the skin redundancy is thicker. Vaser liposuction was performed for 2 minutes to loosen the area. Suction assisted lipectomy then d one in the lateral chest area evacuating 200 cc of liposuction fluid. Excess tissue inferiorly was measured and resected, creating the horizontal scar. Horizontal scar was closed with interrupted 3-0 Monocryl sutures as well as 3-0 Monocryl V-Loc suture. Nipple area complex was brought into view through the new opening and sutured in place with 3-0 and 4-0 Monocryl sutures and a 5-0 plain gut sutures. Two 10 mm Josue-Ghosh drains was placed through the lateral portion of the horizontal incision. and secured in place with 3-0 Monocryl suture. Remaining Exparel injected in the horizontal incision. Total Exparel use 20 cc. Resected tissue sent to pathology in two specimens right and left breast tissue. Right breast 927 grams, left breast 919 grams. Dressings were applied to vertical and horizontal incision: Prinio strips and Dermabond. Nipples areolar complex: Xeroform and a bulky dressing with a surgical bra. Patient was extubated in the operating room without difficulty and was transferred to the recovery room in stable condition. SERA MOY DO Apr 08, 2021 14:37
--- NOTE | 2021-04-08 14:37 | POST-OPPD ---
Postoperative Procedure Note Date Of Procedure: Apr 08, 2021 PREOPERATIVE DIAGNOSIS: Bilateral breast hypertrophy. POSTOPERATIVE DIAGNOSIS: same PROCEDURE: Bilateral breast reduction SURGEON: Dr Moy ANESTHESIA: General ESTIMATED BLOOD LOSS: 100 cc FINDINGS: Large breasts SPECIMENS: Right breast 927 gm, Left breast 919 gm COMPLICATIONS: none REPLACED: none DRAINS: 10 mm LILIA x 4 POSTOPERATIVE CONDITION: stable SERA MOY DO Apr 08, 2021 14:37
[2021-04-08] MEDS ORDERED: traMADol 50 MG TAB PO PRN (14:40)
[2021-04-08] MEDS ORDERED: ACETAMINOPHEN TAB 650MG DOSE (2X325MG) PO PRN (14:40)
[2021-04-08] MEDS ORDERED: ONDANSETRON 4MG/2ML VIAL IV PRN ×2 (14:40→14:50)
[2021-04-08] MEDS ORDERED: LR 1,000 ML IV SCH (14:50)
[2021-04-08] MEDS ORDERED: oxyCODONE 5MG TAB PO PRN (14:50)
[2021-04-08] MEDS ORDERED: fentaNYL 100 MCG/2 ML INJECTION (J3010) IV PRN (14:50)
[2021-04-08] MEDS: LR 1,000 ML IV SCH (18:28)
[2021-04-09] VITALS (9 sets, daily range): BP systolic 106–137; BP diastolic 55–82
[2021-04-09] MEDS ORDERED: traMADol 50 MG TAB PO PRN (00:10)
[2021-04-09] MEDS ORDERED: propofoL 200 MG/20 ML VIAL As Ordered ONE ×6 (02:29→05:08)
[2021-04-09] MEDS ORDERED: LIDOCAINE 2% 100MG/5ML SDV (FOR ANES.) As Ordered ONE (02:29)
--- NOTE | 2021-04-09 02:29 | IPNPDOC ---
Subjective General Date Seen: Apr 09, 2021 Subject Chief Complaint/History The patient is a 45-year-old female admitted with a reason for visit of Bilateral Breast Hypertrophy. Called to see a patient due to sudden bleeding from the right breast incision and drains getting full. Also, pain and swelling increased in the right breast as well. Patient seen and examined at the bedside. She is stating that the pain pulling, 8-9 out of 10. Started about 1 am. Denies nausea, vomitting, chest pain. Current Medications Current Medications Current Medications Medications (Trade) Dose Ordered Sig/Diane Route PRN Reason Start Time Stop Time Status Last Admin Dose Admin Acetaminophen (Tylenol Tab) 650 mg Q6H PRN PO MILD PAIN (PS 1-4) 04/08/21 14:40 Atorvastatin Calcium (Lipitor) 40 mg DAILY PO 04/09/21 09:00 Cyanocobalamin (Vitamin B12) 1,000 mcg DAILY PO 04/09/21 09:00 Estradiol (Estrace) 2 mg DAILY PO 04/09/21 09:00 Fentanyl Citrate (Sublimaze) 25 mcg Q5MP PRN IV PAIN LEVEL 8-10 04/08/21 14:50 04/08/21 16:50 DC Fluoxetine HCl (PROzac) 40 mg DAILY PO 04/09/21 09:00 Lactated Ringer's 1,000 ml @ 75 mls/hr [id number] IV 04/08/21 17:45 04/08/21 18:28 Lactated Ringer's 1,000 ml @ 100 mls/hr Q10H IV 04/08/21 14:50 04/08/21 16:50 DC Medroxyprogesterone Acetate (Provera) 5 mg DAILY PO 04/09/21 09:00 Ondansetron HCl (ZOFRAN INJection) 4 mg Q4H PRN IV NAUSEA OR VOMITING 04/08/21 14:40 04/09/21 00:51 Ondansetron HCl (ZOFRAN INJection) 4 mg Q4HP PRN IV NAUSEA OR VOMITING 04/08/21 14:50 04/08/21 16:50 DC Oxycodone HCl (Roxicodone, Oxyir) 5 mg ASDIRECTED PRN PO PAIN LEVEL 1-4 04/08/21 14:50 04/08/21 16:50 DC Sitagliptin Phosphate (Januvia) 50 mg DAILY PO 04/09/21 09:00 Tramadol HCl (Ultram) 50 mg Q6HP PRN PO PAIN LEVEL 8-10 04/08/21 14:40 04/09/21 00:11 DC 04/08/21 21:21 Tramadol HCl (Ultram) 100 mg Q4HP PRN PO PAIN LEVEL 8-10 04/09/21 00:10 04/09/21 01:11 Allergies Coded Allergies: Penicillins (Verified Allergy, Mild, rash/hives, 04/01/21) levofloxacin (Verified Allergy, Unknown, INCREASED BP, FELT FAINT, 04/01/21) STATES REACTION WHEN WOKE UP FROM SURGERY morphine (Verified Allergy, Unknown, rash/fevers, 04/01/21) Objective Physical Examination Examination GENERAL APPEARANCE:Patient seen, laying in bed, awake, alert, and oriented. Calm, aware of what is happening. No acute distress. SKIN: Warm and moist. BREAST: Right hard, painful. Incisions intact. Left soft, non-tender incisions intact. LILIA drains: Left 15/15, Right full both drains with clots. NAC: Viable, warm, symmetrical, mild post-op ecchymosis. LUNGS: Clear to auscultation bilaterally. No wheezing appreciated. HEART: No chest wall abnormalities. Regular rate and rhythm with no murmurs appreciated. ABDOMEN: Abdomen is soft, non-tender, non-distended. EXTREMITIES: No edema identified. No calf tenderness. Vital Signs Vital Signs Date Time Temp Pulse Resp B/P (MAP) Pulse Ox O2 Delivery O2 Flow Rate FiO2 04/09/21 01:11 18 04/09/21 00:00 99.2 91 123/65 (84) 92 Room Air 04/08/21 16:00 2.0 I&Os I&O- Last 24 Hours up to 6 AM 04/09/21 06:00 Intake Total 2095 ml Output Total 1518 ml Balance 577 ml Laboratory Data Labs 24H Laboratory Tests 2 04/08/21 08:17: Bedside Glucose (Misc Panel) 111H 04/08/21 14:37: Bedside Glucose (Misc Panel) 178H 04/08/21 16:36: Bedside Glucose (Misc Panel) 230H 04/08/21 17:41: Bedside Glucose (Misc Panel) 208H 04/09/21 00:05: Bedside Glucose (Misc Panel) 221H Impression S/p bilateral breast reduction 04/08/21. Right breast hematoma. OR emergently for exploration of right breast and evacuation of hematoma. Risks, benefits and alternatives discussed with patient. Plan / VTE VTE Prophylaxis Ordered?: Yes SERA MOY DO Apr 09, 2021 02:29
[2021-04-09] MEDS ORDERED: dexameTHASONE 4 MG/ML 1ML VIAL (J1100 PER 1MG) As Ordered ONE (02:30)
[2021-04-09] MEDS ORDERED: ONDANSETRON 4MG/2ML VIAL As Ordered ONE (02:30)
[2021-04-09] MEDS ORDERED: MIDAZOLAM INJ 2MG/2ML VIAL (J2250 PER 1MG) As Ordered ONE (02:30)
[2021-04-09] MEDS ORDERED: fentaNYL 100 MCG/2 ML INJECTION (J3010) As Ordered ONE ×2 (02:30→03:05)
[2021-04-09] MEDS ORDERED: BUPIVACAINE LIPOSOME/PF 1.3% 20ML VIAL (13.3MG/ML)(EXPAREL)(C9290 PER1MG) As Ordered ONE (02:34)
[2021-04-09] MEDS ORDERED: ROCURONIUM BROMIDE 50 MG/5 ML VIAL As Ordered ONE (02:42)
[2021-04-09] MEDS ORDERED: ESMOLOL INJ 100MG/10ML VIAL As Ordered ONE (02:56)
[2021-04-09] MEDS ORDERED: ACETAMINOPHEN 1000MG 100ML IV BTL (OFIRMEV) (J0131 PER 10MG) As Ordered ONE (03:35)
[2021-04-09] MEDS ORDERED: SUGAMMADEX SODIUM 500 MG/5 ML VIAL (BRIDION) As Ordered ONE (04:07)
[2021-04-09] MEDS ORDERED: CLINDAMYCIN 900 MG/50 ML PREMIX BAG As Ordered ONE (05:04)
--- NOTE | 2021-04-09 05:34 | POST-OPPD ---
Postoperative Procedure Note Date Of Procedure: Apr 09, 2021 PREOPERATIVE DIAGNOSIS: Right breast hematoma POSTOPERATIVE DIAGNOSIS: same PROCEDURE: Exploration of right breast and evacuation of hematoma. SURGEON: Dr Moy ANESTHESIA: General ESTIMATED BLOOD LOSS: 150 cc (old clot 100cc) FINDINGS: generalized oozing in the pedicle area. Formed clot. SPECIMENS: hematoma COMPLICATIONS: none REPLACED: none DRAINS: 10 mm LILIA x 2 POSTOPERATIVE CONDITION: stable SERA MOY DO Apr 09, 2021 05:34
[2021-04-09] MEDS ORDERED: DEXTROSE 50% 50 ML SYRINGE IV PRN (05:35)
[2021-04-09] MEDS ORDERED: GLUCAGON INJ 1MG VIAL SC PRN (05:35)
[2021-04-09] MEDS ORDERED: GLUCOSE 4GM CHEW TABLET PO PRN (05:35)
--- NOTE | 2021-04-09 05:35 | ROOPDOC ---
[facility] Report Of Operation Report of Operation DATE OF PROCEDURE: 04/09/21 PREOPERATIVE DIAGNOSIS: Right breast hematoma POSTOPERATIVE DIAGNOSIS: same PROCEDURE: Exploration of right breast and evacuation of hematoma. SURGEON: Dr Moy ANESTHESIA: General ESTIMATED BLOOD LOSS: 150 cc (old clot 100cc) FINDINGS: generalized oozing in the pedicle area. Formed clot. SPECIMENS: hematoma COMPLICATIONS: none REPLACED: none DRAINS: 10 mm LILIA x 2 POSTOPERATIVE CONDITION: stable DESCRIPTION OF PROCEDURE: This 45-year-old female status post bilateral breast reduction April 08, 2021. Patient developed sudden pain in right breast with increased girth and increased bloody output through both LILIA drains. Patient was seen and examined at the bedside and scheduled for emergent exploration right breast and evacuation of hematoma. Informed consent obtained from the patient. The risk, benefits, and alternatives to the procedure discussed with patient in details. She was brought in into the operating room placed in supine position, general anesthesia is induced. We removed both drains on the right side. She was prepped and draped in usual sterile fashion. I started my procedure by opening the horizontal incision using 15 blade. Moderate amount of clot was identified in the medial side of the breast as well as on the lateral portion of the breast. We have explored the pedicle and the lateral superior part of the breast. About 100 cc of formed clot was identified. No active bleeding was identified. Wound was irrigated with 2 L of normal saline solution. The area was packed with laps. No active vessel bleeding identified. Small amount of generalized oozing was encountered. At this point, I used foam and woven surgicel in lateral groove and right lateral part of the breast. Pedicle was reexamined again. Oozing was controlled with electrocautery. New LILIA drains inserted. Surgicell left in place. Breast closed with 0-Vycryl, 3- 0 Monocryl and 3-0 V lock sutures. Drains sutures in place. Patient was Valsalva by anesthesia. No more bleeding was identified. Prinio dressing applied. Xeroform to the nipple areolar complex. Bulky dressing and bra. Patient extubated in operating room without difficulties and transferred to recovery room in stable condition awake. SERA MOY DO Apr 09, 2021 05:35
[2021-04-09] MEDS ORDERED: LR 1,000 ML IV SCH (06:00)
[2021-04-09] MEDS ORDERED: oxyCODONE 5MG TAB PO PRN (06:00)
[2021-04-09] MEDS ORDERED: fentaNYL 100 MCG/2 ML INJECTION (J3010) IV PRN (06:00)
[2021-04-09] MEDS ORDERED: ONDANSETRON 4MG/2ML VIAL IV PRN (06:00)
[2021-04-09] MEDS ORDERED: HumaLOG INSULIN (NovoLOG) PER UNIT SC ONE (06:05)
[2021-04-09 06:08] LABS: HEMATOCRIT 34.6 % (36.0-47.0); HEMOGLOBIN 11.2 g/dl (12.0-15.5); MEAN CORPUSCULAR HEMOGLOBIN 28.8 pg (27.0-33.0); MEAN CORPUSCULAR HGB CONC 32.4 g/dl (32.0-36.5); MEAN CORPUSCULAR VOLUME 88.9 fl (80.0-96.0); PLATELET COUNT, AUTOMATED 197 10^3/uL (150-450); RED BLOOD COUNT 3.89 10^6/uL (4.00-5.40); WHITE BLOOD COUNT 15.6 10^3/uL (4.0-10.0)
[2021-04-09 06:35] LABS: BLOOD UREA NITROGEN 10 MG/DL (7-18); CALCIUM LEVEL 8.1 MG/DL (8.5-10.1); CARBON DIOXIDE LEVEL 23 MEQ/L (21-32); CHLORIDE LEVEL 109 MEQ/L (98-107); CREATININE FOR GFR 0.86 MG/DL (0.55-1.30); GLOMERULAR FILTRATION RATE > 60.0 (>58); GLUCOSE, FASTING 228 MG/DL (70-100); POTASSIUM SERUM 4.3 MEQ/L (3.5-5.1); SODIUM LEVEL 141 MEQ/L (136-145)
[2021-04-09] MEDS: LR 1,000 ML IV SCH (06:55)
[2021-04-09] MEDS ORDERED: medroxyPROGESTERone 5MG TABLET PO SCH (09:00)
[2021-04-09] MEDS ORDERED: ATORVASTATIN 20 MG TAB PO SCH (09:00)
[2021-04-09] MEDS ORDERED: FLUoxetine 20 MG CAP PO SCH (09:00)
[2021-04-09] MEDS ORDERED: estradioL 1 MG TAB PO SCH (09:00)
[2021-04-09] MEDS ORDERED: CYANOCOBALAMIN 500 MCG TAB PO SCH (09:00)
[2021-04-09] MEDS ORDERED: SITagliptin 50 MG TAB (JANUVIA) PO SCH (09:00)
--- NOTE | 2021-04-09 15:40 | IPNPDOC ---
Subjective General Date Seen: Apr 09, 2021 Subject Chief Complaint/History The patient is a 45-year-old female admitted with a reason for visit of Bilateral Breast Hypertrophy. Patient status post bilateral breast reduction and right breast hematoma evacuation postop day 1. She is doing well right now. Pain is controlled with tramadol. Patient is ambulating to the bathroom, tolerating diet and has minimal output from LILIA drains. Current Medications Current Medications Current Medications Medications (Trade) Dose Ordered Sig/Diane Route PRN Reason Start Time Stop Time Status Last Admin Dose Admin Acetaminophen (Tylenol Tab) 650 mg Q6H PRN PO MILD PAIN (PS 1-4) 04/08/21 14:40 Atorvastatin Calcium (Lipitor) 40 mg DAILY PO 04/09/21 09:00 04/09/21 08:52 Cyanocobalamin (Vitamin B12) 1,000 mcg DAILY PO 04/09/21 09:00 04/09/21 08:52 Dextrose (Dextrose 50%) 25 ml ASDIRECTED PRN IV SEE LABEL COMMENTS 04/09/21 05:35 Estradiol (Estrace) 2 mg DAILY PO 04/09/21 09:00 04/09/21 10:34 Fentanyl Citrate (Sublimaze) 25 mcg Q5MP PRN IV PAIN LEVEL 8-10 04/08/21 14:50 04/08/21 16:50 DC Fentanyl Citrate (Sublimaze) 25 mcg Q5MP PRN IV PAIN LEVEL 8-10 04/09/21 06:00 04/09/21 08:00 DC Fluoxetine HCl (PROzac) 40 mg DAILY PO 04/09/21 09:00 04/09/21 08:53 Glucagon (Glucagon) 1 mg ASDIRECTED PRN SC SEE LABEL COMMENTS 04/09/21 05:35 Glucose (Glucose) 16 GM ASDIRECTED PRN PO SEE LABEL COMMENTS 04/09/21 05:35 Lactated Ringer's 1,000 ml @ 75 mls/hr [id number] IV 04/08/21 17:45 04/09/21 06:55 Lactated Ringer's 1,000 ml @ 80 mls/hr [id number] IV 04/09/21 06:00 04/09/21 08:00 DC Lactated Ringer's 1,000 ml @ 100 mls/hr Q10H IV 04/08/21 14:50 04/08/21 16:50 DC Medroxyprogesterone Acetate (Provera) 5 mg DAILY PO 04/09/21 09:00 04/09/21 10:34 Ondansetron HCl (ZOFRAN INJection) 4 mg Q4H PRN IV NAUSEA OR VOMITING 04/08/21 14:40 04/09/21 00:51 Ondansetron HCl (ZOFRAN INJection) 4 mg Q4HP PRN IV NAUSEA OR VOMITING 04/08/21 14:50 04/08/21 16:50 DC Ondansetron HCl (ZOFRAN INJection) 4 mg Q4HP PRN IV NAUSEA OR VOMITING 04/09/21 06:00 04/09/21 08:00 DC Oxycodone HCl (Roxicodone, Oxyir) 5 mg ASDIRECTED PRN PO PAIN LEVEL 1-4 04/08/21 14:50 04/08/21 16:50 DC Oxycodone HCl (Roxicodone, Oxyir) 5 mg ASDIRECTED PRN PO PAIN LEVEL 1-4 04/09/21 06:00 04/09/21 08:00 DC Sitagliptin Phosphate (Januvia) 50 mg DAILY PO 04/09/21 09:00 04/09/21 08:52 Tramadol HCl (Ultram) 50 mg Q6HP PRN PO PAIN LEVEL 8-10 04/08/21 14:40 04/09/21 00:11 DC 04/08/21 21:21 Tramadol HCl (Ultram) 100 mg Q4HP PRN PO PAIN LEVEL 8-10 04/09/21 00:10 04/09/21 01:11 Allergies Coded Allergies: Penicillins (Verified Allergy, Mild, rash/hives, 04/01/21) levofloxacin (Verified Allergy, Unknown, INCREASED BP, FELT FAINT, 04/01/21) STATES REACTION WHEN WOKE UP FROM SURGERY morphine (Verified Allergy, Unknown, rash/fevers, 04/01/21) Objective Physical Examination Examination GENERAL APPEARANCE:Patient seen, laying in bed, awake, alert, and oriented. Comfortable, in no acute distress. SKIN: Warm and moist. BREAST: Right and left soft, non-tender incisions intact. Both breasts soft. No expanding hematoma. LILIA drains: 20/15 Left, 85/65 Right cc/24 hr. NAC: Viable, warm, symmetrical, mild post-op ecchymosis, no expanding hematoma. LUNGS: Clear to auscultation bilaterally. No wheezing appreciated. HEART: No chest wall abnormalities. Regular rate and rhythm with no murmurs appreciated. ABDOMEN: Abdomen is soft, non-tender, non-distended. EXTREMITIES: No edema identified. No calf tenderness. Vital Signs Vital Signs Date Time Temp Pulse Resp B/P (MAP) Pulse Ox O2 Delivery O2 Flow Rate FiO2 04/09/21 14:00 99.4 95 17 124/79 (94) 94 Room Air 04/09/21 10:00 2.0 I&Os I&O- Last 24 Hours up to 6 AM 04/09/21 06:00 Intake Total 3695 ml Output Total 1768 ml Balance 1927 ml Laboratory Data Labs 24H Laboratory Tests 2 04/08/21 16:36: Bedside Glucose (Misc Panel) 230H 04/08/21 17:41: Bedside Glucose (Misc Panel) 208H 04/09/21 00:05: Bedside Glucose (Misc Panel) 221H 04/09/21 05:33: Bedside Glucose (Misc Panel) 198H 04/09/21 05:50: Nucleated Red Blood Cells % (auto) 0.0, Anion Gap 9, Glomerular Filtration Rate > 60.0, Calcium Level 8.1L CBC/BMP Laboratory Tests 04/09/21 05:50 Impression Status post bilateral breast reduction and evacuation hematoma right breast. Dressings changed today. Patient is feeling well. Minimal pain. Instructions given regarding limiting heavy lifting. Stable for discharge. H&H is stable. Follow-up plastic surgery after discharge. Plan / VTE VTE Prophylaxis Ordered?: Yes SERA MOY DO Apr 09, 2021 15:40
[2021-04-09] MEDS ORDERED: TRAM50TA2 PO (15:43)
== END 2021-04-09 16:45 | disposition home or self-care (01) ==
LOC: M SDC 07:26 → M MS5PR 07:27
PROVIDERS: ADMIT Plastic Surgery Surgery of the Hand; ATTEND Plastic Surgery Surgery of the Hand
DX: N62 Hypertrophy of breast (principal); L76.32 Postprocedural hematoma of skin and subcutaneous tissue following other procedure; E78.5 Hyperlipidemia, unspecified; E11.9 Type 2 diabetes mellitus without complications; K21.9 Gastro-esophageal reflux disease without esophagitis; Z87.891 Personal history of nicotine dependence; Z79.899 Other long term (current) drug therapy; Z88.0 Allergy status to penicillin; Z88.5 Allergy status to narcotic agent; Z88.1 Allergy status to other antibiotic agents
CPT/HCPCS: 19318; 21501; 80048; 85027; 88300; 88304; 88305; 96374; C9290; G0378; J0131; J1100; J1170; J1580; J1644; J2250; J2405; J2765; J3010